=== PATIENT | female | born 1935 | race Caucasian/White ===

== ENCOUNTER → 2017-01-25 | Outpatient (CLI) | payer MEDICARE, MEDICAID ==
[~2017-01-25] MED LIST: ALPR0.254 PO; ATEN-60 PO; ENA2.5T PO; INSLANTI SC; INSUPOW XX; LACT10SO PO; LISI-646; MENTOIN9 EX; OMEP20CA5 PO; SIMV20TA90 OR; [UNRECOGNIZED DRUG - MIXTURE]; [UNRECOGNIZED DRUG - OTHER]
== END | disposition home or self-care (01) ==
LOC: Rad HDHVI 11:19
PROVIDERS: ATTEND Internal Medicine Cardiovascular Disease
DX: I73.9 Peripheral vascular disease, unspecified (principal); K55.9 Vascular disorder of intestine, unspecified; R06.00 Dyspnea, unspecified
CPT/HCPCS: 93306

== ENCOUNTER → 2017-05-04 | Outpatient (CLI) | payer MEDICARE, MEDICAID ==
[~2017-05-04] MED LIST changes: -LACT10SO PO; +LACT10SO3 PO; -OMEP20CA5 PO; +OMEP20CA74 PO
[2017-05-04 16:45] LABS: Urine Bilirubin Negative (Negative); Urine Blood Negative /uL (Negative); Urine Color Yellow (Yellow); Urine Glucose Normal (Normal); Urine Ketone Negative (Negative); Urine Nitrite Negative (Negative); Urine Urobilinogen Normal (Negative); Urine pH 6.5 (5.0-8.0)
[2017-05-04 17:02] LABS: Basophils # (auto) 0.1 uL; Basophils % (auto) 0.5 % (0.0-2.0); CONDITION Y; Eosinophils # (auto) 0.2 uL; Eosinophils % (auto) 1.8 % (0.0-7.0); Hematocrit 39.7 % (36.0-46.0); Hemoglobin 13.1 g/dL (12.2-16.2); Lymphocytes # (auto) 2.3 uL; Lymphocytes % (auto) 23.5 % (10.0-50.0); Mean Corpuscular Hemoglobin 27.9 pg (28.0-32.0); Mean Corpuscular Hgb Conc. 32.8 g/dL (32.0-36.0); Mean Corpuscular Volume 84.8 fL (80.0-100.0); Mean Platelet Volume 10.6 fL (7.4-10.4); Monocytes % (auto) 10.2 % (0.0-12.0); Neutrophils # (auto) 6.3 uL; Platelet Count (auto) 384 10^3/uL (140-450); Red Cell Distribution Width 13.6 % (11.6-16.0); White Blood Cell 9.8 10^3/uL (4.4-10.8)
[2017-05-04 17:05] LABS: BUN/Creatinine Ratio 16.3; Calcium 8.8 mg/dL (8.5-10.1); Potassium 3.9 mmol/L (3.5-5.1)
== END | disposition home or self-care (01) ==
LOC: Rad HDHVI 14:06
PROVIDERS: ATTEND Internal Medicine Cardiovascular Disease
DX: I08.3 Combined rheumatic disorders of mitral, aortic and tricuspid valves (principal); I10 Essential (primary) hypertension; E11.9 Type 2 diabetes mellitus without complications; E03.9 Hypothyroidism, unspecified; D64.9 Anemia, unspecified; N39.0 Urinary tract infection, site not specified; R06.00 Dyspnea, unspecified
CPT/HCPCS: 36415; 80048; 81003; 83036; 84443; 85025; 87086; 93306

== ENCOUNTER → 2017-09-15 | Outpatient (CLI) | payer MEDICARE, MEDICAID ==
[2017-09-15 16:23] LABS: Albumin 3.3 g/dL (3.4-5.0); Total Protein 7.9 g/dL (6.4-8.2)
[2017-09-15 16:44] LABS: Basophils # (auto) 0.1 uL; Basophils % (auto) 0.6 % (0.0-2.0); Eosinophils # (auto) 0.2 uL; Eosinophils % (auto) 1.9 % (0.0-7.0); Hematocrit 41.7 % (36.0-46.0); Hemoglobin 13.5 g/dL (12.2-16.2); Lymphocytes # (auto) 2.1 uL; Mean Corpuscular Hemoglobin 28.7 pg (28.0-32.0); Mean Corpuscular Hgb Conc. 32.5 g/dL (32.0-36.0); Mean Corpuscular Volume 88.3 fL (80.0-100.0); Mean Platelet Volume 9.7 fL (6.9-10.8); Monocytes % (auto) 11.1 % (0.0-12.0); Neutrophils # (auto) 5.9 uL; Neutrophils % (auto) 63.4 % (37.0-80.0); Nucleated Red Blood Cells % 0.1 %; Platelet Count (auto) 281 10^3/uL (140-450); Red Cell Distribution Width 13.4 % (11.8-14.3); White Blood Cell 9.3 10^3/uL (4.4-10.8)
[2017-09-15 16:53] LABS: Potassium 3.7 mmol/L (3.5-5.1)
[2017-09-15 16:54] LABS: BUN/Creatinine Ratio 18.4; Bilirubin, Direct 0.1 mg/dL (0-0.2); Bilirubin, Total 0.3 mg/dL (0.2-1.0)
== END | disposition home or self-care (01) ==
LOC: Rad HDHVI 12:58
PROVIDERS: ATTEND Internal Medicine Cardiovascular Disease
DX: I25.5 Ischemic cardiomyopathy (principal); E11.9 Type 2 diabetes mellitus without complications; I10 Essential (primary) hypertension; D64.9 Anemia, unspecified; E78.00 Pure hypercholesterolemia, unspecified; E03.9 Hypothyroidism, unspecified; E55.9 Vitamin D deficiency, unspecified; K74.1 Hepatic sclerosis; N39.0 Urinary tract infection, site not specified
CPT/HCPCS: 36415; 80048; 80061; 80076; 82306; 83036; 84443; 85025; 85652; 86141; 93306

== ENCOUNTER → 2018-06-06 | Outpatient (CLI) | payer MEDICARE, MEDICAID ==
[~2018-06-06] MED LIST changes: +CAR3125T PO; +FURO40TA4 PO; +GAB100C PO; +HYDR-4072 PO; +INSRTEST SC; +MAGN400T5 PO; +RIVA20TA PO; +SOTA80TA62 PO
== END | disposition home or self-care (01) ==
LOC: Rad HDHVI 14:56
PROVIDERS: ATTEND Internal Medicine Cardiovascular Disease
DX: I08.1 Rheumatic disorders of both mitral and tricuspid valves (principal); I73.9 Peripheral vascular disease, unspecified; E11.22 Type 2 diabetes mellitus with diabetic chronic kidney disease; I12.9 Hypertensive chronic kidney disease with stage 1 through stage 4 chronic kidney disease, or unspecified chronic kidney disease; E78.00 Pure hypercholesterolemia, unspecified; N18.9 Chronic kidney disease, unspecified; E03.9 Hypothyroidism, unspecified
CPT/HCPCS: 93306

== ENCOUNTER → 2018-06-21 | Outpatient (CLI) | payer MEDICARE, MEDICAID ==
[2018-06-21 12:10] VITALS: BP 99/46
[2018-06-21 16:33] LABS: Basophils # (auto) 0.1 uL; Basophils % (auto) 0.4 % (0.0-2.0); Eosinophils # (auto) 0.1 uL; Eosinophils % (auto) 0.7 % (0.0-7.0); Hematocrit 38.7 % (36.0-46.0); Hemoglobin 12.6 g/dL (12.2-16.2); Lymphocytes # (auto) 1.8 uL; Mean Corpuscular Hemoglobin 27.9 pg (28.0-32.0); Mean Corpuscular Hgb Conc. 32.5 g/dL (32.0-36.0); Mean Corpuscular Volume 85.8 fL (80.0-100.0); Monocytes # (auto) 1.2 uL; Monocytes % (auto) 8.5 % (0.0-12.0); Neutrophils # (auto) 10.9 uL; Neutrophils % (auto) 77.4 % (37.0-80.0); Nucleated Red Blood Cells % 0.1 %; Platelet Count (auto) 459 10^3/uL (140-450); Red Blood Cells 4.51 10^6/uL (4.0-5.20); Red Cell Distribution Width 13.7 % (11.8-14.3)
[2018-06-21 16:46] LABS: BUN/Creatinine Ratio 11.1; Calcium 8.9 mg/dL (8.5-10.1); Potassium 3.9 mmol/L (3.5-5.1)
[2018-06-21 17:29] VITALS: BP 89/50
[2018-06-21 17:49] LABS: INR 0.96 (0.9-1.15); Partial Thromboplastin Time 30.8 sec (23.78-33.04); Prothrombin Time 10.3 sec (9.27-12.13)
== END | disposition home or self-care (01) ==
LOC: Rad HDHVI 11:02
PROVIDERS: ATTEND Internal Medicine Cardiovascular Disease
DX: Z01.818 Encounter for other preprocedural examination (principal); I70.0 Atherosclerosis of aorta; D64.9 Anemia, unspecified; R79.1 Abnormal coagulation profile; J98.11 Atelectasis; I11.9 Hypertensive heart disease without heart failure; E11.9 Type 2 diabetes mellitus without complications; E03.9 Hypothyroidism, unspecified; I73.9 Peripheral vascular disease, unspecified; Z79.899 Other long term (current) drug therapy
CPT/HCPCS: 36415; 71046; 80048; 85025; 85610; 85730; 93005; G0463

== ENCOUNTER 2018-06-23 06:58 | Inpatient (IN) | payer MEDICARE, MEDICAID ==
[~2018-06-23] VITALS: Ht 167.6 cm; Wt 72.4 kg
[~2018-06-23 06:58] MED LIST changes: -ATEN-60 PO; -ENA2.5T PO; -INSUPOW XX; -LACT10SO3 PO; -LISI-646; -MENTOIN9 EX; -OMEP20CA74 PO; -[UNRECOGNIZED DRUG - MIXTURE]; -[UNRECOGNIZED DRUG - OTHER]
[2018-06-23] MEDS ORDERED: LIDOCAINE 2% (LOCAL ANESTH.) PF 5ml SDV ONE (07:58)
[2018-06-23] MEDS ORDERED: IOHEXOL 350 MG/ML 100ML IJ ONE (07:58)
[2018-06-23] MEDS ORDERED: IODIXANOL 320MG/ML 100ML BTL IV ONE ×2 (08:02→09:05)
[2018-06-23] MEDS ORDERED: MIDAZOLAM HCL 1MG/1ML-2 ML VIAL ONE (08:27)
[2018-06-23] MEDS ORDERED: ANGIOMAX 250 MG VIAL IV ONE (08:27)
[2018-06-23] MEDS ORDERED: SODIUM CHL 0.9% 50 ML ONE (08:27)
[2018-06-23] MEDS ORDERED: fentaNYL CITRATE 100 MCG/2 ML VL ONE (08:27)
[2018-06-23] MEDS ORDERED: RIVAROXABAN 10 MG TAB PO SCH (10:00)
[2018-06-23] MEDS ORDERED: DEXTROSE (50%) 50ML SYRG IV PRN (10:15)
[2018-06-23] MEDS ORDERED: PNEUMOCOCCAL VACC POLYS 25 MCG/0.5 ML VIAL IM ONE (12:00)
[2018-06-23] MEDS: FUROSEMIDE 40 MG TAB PO SCH ×2 (12:39→22:00)
[2018-06-23] MEDS: MAGNESIUM OXIDE 400 MG TAB PO SCH (12:39)
[2018-06-23] MEDS: InsuLIN REG 1unit/0.01ml Soln (100units/ml) SC SCH ×3 (12:40→22:12)
[2018-06-23] MEDS: ALPRAZolam 0.25 MG TAB PO SCH ×2 (12:40→22:02)
[2018-06-23] MEDS: ACCU-CHEK COMFORT CURVE STRIP VI SCH ×3 (12:41→22:12)
[2018-06-23] MEDS: HYDROcodone-ACET 10/325MG TAB PO SCH ×3 (12:41→22:12)
[2018-06-23 13:00] VITALS: BP 124/78
[2018-06-23 17:00] VITALS: BP 124/72
[2018-06-23] MEDS: RIVAROXABAN 20 MG TAB PO SCH (17:52)
[2018-06-23 21:30] VITALS: BP 110/63
[2018-06-23] MEDS: CARVEDILOL 3.125 MG TAB PO SCH (22:02)
[2018-06-23] MEDS: GABAPENTIN 100 MG CAP PO SCH (22:03)
[2018-06-23] MEDS: SOTALOL HCL 80 MG TAB PO SCH (22:04)
[2018-06-23] MEDS: INSULIN LANTUS (GLARGINE) 1 /0.01ml (100units/ml) SC SCH (22:12)
[2018-06-24 05:00] VITALS: BP 105/60
[2018-06-24] MEDS: ACCU-CHEK COMFORT CURVE STRIP VI SCH ×4 (06:38→22:41)
[2018-06-24] MEDS: InsuLIN REG 1unit/0.01ml Soln (100units/ml) SC SCH ×4 (06:38→22:41)
[2018-06-24] MEDS: HYDROcodone-ACET 10/325MG TAB PO SCH ×3 (06:38→18:37)
[2018-06-24 09:00] VITALS: BP 100/60
[2018-06-24] MEDS: FUROSEMIDE 40 MG TAB PO SCH ×2 (10:00→22:00)
[2018-06-24] MEDS: CARVEDILOL 3.125 MG TAB PO SCH ×2 (10:00→22:27)
[2018-06-24] MEDS: SOTALOL HCL 80 MG TAB PO SCH ×2 (10:00→22:26)
[2018-06-24] MEDS ORDERED: POTASSIUM CHL 20 Meq TABLET PO ONE (10:45)
[2018-06-24] MEDS ORDERED: FUROSEMIDE 40 MG/4 ML VIAL IV ONE (10:45)
[2018-06-24 13:00] VITALS: BP 121/64
[2018-06-24] MEDS: MAGNESIUM OXIDE 400 MG TAB PO SCH (15:10)
[2018-06-24] MEDS: GABAPENTIN 100 MG CAP PO SCH ×2 (15:11→22:25)
[2018-06-24] MEDS: ALPRAZolam 0.25 MG TAB PO SCH ×2 (15:11→22:26)
[2018-06-24 17:00] VITALS: BP 116/63
[2018-06-24] MEDS: RIVAROXABAN 20 MG TAB PO SCH (18:37)
[2018-06-24 21:30] VITALS: BP 114/57
[2018-06-24] MEDS: INSULIN LANTUS (GLARGINE) 1 /0.01ml (100units/ml) SC SCH (22:42)
[2018-06-25 05:00] VITALS: BP 105/47
[2018-06-25] MEDS: HYDROcodone-ACET 10/325MG TAB PO SCH ×2 (06:00→10:24)
[2018-06-25] MEDS: InsuLIN REG 1unit/0.01ml Soln (100units/ml) SC SCH (06:38)
[2018-06-25] MEDS: ACCU-CHEK COMFORT CURVE STRIP VI SCH (06:38)
[2018-06-25 08:57] VITALS: BP 103/56
[2018-06-25 09:32] VITALS: BP 103/56
[2018-06-25] MEDS: GABAPENTIN 100 MG CAP PO SCH (10:24)
[2018-06-25] MEDS: ALPRAZolam 0.25 MG TAB PO SCH (10:25)
[2018-06-25] MEDS: CARVEDILOL 3.125 MG TAB PO SCH (10:25)
[2018-06-25] MEDS: MAGNESIUM OXIDE 400 MG TAB PO SCH (10:25)
== END 2018-06-25 10:45 | disposition home health service (06) | DRG 271 ==
LOC: CATH 06:58 → TELE-WESTW 06:59 → WEST WING 21:00
PROVIDERS: ADMIT Internal Medicine Cardiovascular Disease; ATTEND Internal Medicine Cardiovascular Disease
PROC: B41G1ZZ Fluoroscopy of Left Lower Extremity Arteries using Low Osmolar Contrast (ICD-10-PCS; principal; 2018-06-23)
PROC: 04CP3ZZ Extirpation of Matter from Right Anterior Tibial Artery, Percutaneous Approach (ICD-10-PCS; 2018-06-23)
PROC: 047M341 Dilation of Right Popliteal Artery with Drug-eluting Intraluminal Device, using Drug-Coated Balloon, Percutaneous Approach (ICD-10-PCS; 2018-06-23)
PROC: 047T3Z1 Dilation of Right Peroneal Artery using Drug-Coated Balloon, Percutaneous Approach (ICD-10-PCS; 2018-06-23)
PROC: 04CR3ZZ Extirpation of Matter from Right Posterior Tibial Artery, Percutaneous Approach (ICD-10-PCS; 2018-06-23)
PROC: 04CT3ZZ Extirpation of Matter from Right Peroneal Artery, Percutaneous Approach (ICD-10-PCS; 2018-06-23)
PROC: B41F1ZZ Fluoroscopy of Right Lower Extremity Arteries using Low Osmolar Contrast (ICD-10-PCS; 2018-06-23)
DX: I70.201 Unspecified atherosclerosis of native arteries of extremities, right leg (principal); L97.919 Non-pressure chronic ulcer of unspecified part of right lower leg with unspecified severity; I74.3 Embolism and thrombosis of arteries of the lower extremities; E11.51 Type 2 diabetes mellitus with diabetic peripheral angiopathy without gangrene; E11.40 Type 2 diabetes mellitus with diabetic neuropathy, unspecified; E11.21 Type 2 diabetes mellitus with diabetic nephropathy; E11.622 Type 2 diabetes mellitus with other skin ulcer; I48.0 Paroxysmal atrial fibrillation; Z79.01 Long term (current) use of anticoagulants; I25.10 Atherosclerotic heart disease of native coronary artery without angina pectoris
CPT/HCPCS: 36415; 37229; 71046; 80048; 82962; 85025; 85610; 85730; 93005; 99152; A6257; G0463; J1815; J2001; J2250; Q9967

== ENCOUNTER 2018-06-29 13:14 | Inpatient (IN) | payer MEDICARE, MEDICAID ==
[~2018-06-29] VITALS: Ht 167.6 cm; Wt 74.0 kg
[2018-06-29 14:24] LABS: Basophils # (auto) 0.1 uL; Basophils % (auto) 0.7 % (0.0-2.0); Eosinophils # (auto) 0.3 uL; Eosinophils % (auto) 3.5 % (0.0-7.0); Hematocrit 34.8 % (36.0-46.0); Hemoglobin 11.4 g/dL (12.2-16.2); Lymphocytes # (auto) 1.4 uL; Lymphocytes % (auto) 14.6 % (10.0-50.0); Mean Corpuscular Hemoglobin 27.6 pg (28.0-32.0); Mean Corpuscular Hgb Conc. 32.7 g/dL (32.0-36.0); Mean Corpuscular Volume 84.4 fL (80.0-100.0); Monocytes # (auto) 1.4 uL; Monocytes % (auto) 13.9 % (0.0-12.0); Neutrophils # (auto) 6.5 uL; Neutrophils % (auto) 67.3 % (37.0-80.0); Platelet Count (auto) 400 10^3/uL (140-450); Red Blood Cells 4.12 10^6/uL (4.0-5.20); Red Cell Distribution Width 13.4 % (11.8-14.3); White Blood Cell 9.7 10^3/uL (4.4-10.8)
[2018-06-29 14:38] LABS: INR 1.53 (0.9-1.15); Partial Thromboplastin Time 51.4 sec (23.78-33.04)
[2018-06-29 14:47] LABS: Alanine Aminotransferase 15 U/L (13-56); Albumin 2.7 g/dL (3.4-5.0); Alkaline Phosphatase 145 U/L (45-117); Anion Gap 8 (5-15); Aspartate Aminotransferase 14 U/L (15-37); BUN/Creatinine Ratio 18.2; Bilirubin, Total 0.4 mg/dL (0.2-1.0); Blood Urea Nitrogen 24 mg/dL (7-18); Calcium 8.4 mg/dL (8.5-10.1); Carbon Dioxide 26 mmol/L (21-32); Chloride 102 mmol/L (98-107); GFR African American 50 mL/min; GFR Non-African American 41 mL/min; Glucose 202 mg/dL (74-106); Potassium 4.1 mmol/L (3.5-5.1); Sodium 136 mmol/L (136-145); Total Protein 7.6 g/dL (6.4-8.2)
[2018-06-29] MEDS ORDERED: SODIUM CHLORIDE 0.9% 1,000 ML IV SCH ×2 (20:18→22:45)
[2018-06-29] MEDS ORDERED: ONDANSETRON HCL 4 MG/2 ML VIAL IV PRN (20:30)
[2018-06-29] MEDS ORDERED: TEMAZEPAM 15 MG CAP PO PRN (20:30)
[2018-06-29] MEDS ORDERED: DEXTROSE (50%) 50ML SYRG IV PRN (20:30)
[2018-06-29] MEDS ORDERED: MORPHINE SULF INJ 2 MG/ML SYRINGE 1ML IV PRN (20:30)
[2018-06-29] MEDS ORDERED: ACETAMINOPHEN 325 MG TAB PO PRN (20:30)
[2018-06-29] MEDS ORDERED: RIVAROXABAN 20 MG TAB PO ONE (20:45)
[2018-06-29] MEDS: PANTOPRAZOLE 40 MG TAB PO SCH (20:54)
[2018-06-29] MEDS: HYDROcodone-ACET 5/325MG TAB PO PRN (21:13)
[2018-06-29 22:00] VITALS: BP 106/48
[2018-06-29] MEDS ORDERED: SOTALOL HCL 80 MG TAB PO SCH (22:00)
[2018-06-29] MEDS: CLINDAMYCIN 600MG IV 50 ML IV SCH (22:08)
[2018-06-29] MEDS: ATORVASTATIN 20 MG TAB PO SCH (22:09)
[2018-06-29] MEDS: CARVEDILOL 3.125 MG TAB PO SCH (22:09)
[2018-06-29] MEDS: GABAPENTIN 100 MG CAP PO SCH (22:09)
[2018-06-29 22:46] VITALS: BP 106/48
[2018-06-29 22:50] VITALS: BP 106/48
[2018-06-30] MEDS: InsuLIN REG 1unit/0.01ml Soln (100units/ml) SC SCH ×5 (00:12→23:37)
[2018-06-30] MEDS: ACCU-CHEK COMFORT CURVE STRIP VI SCH ×5 (00:13→23:28)
[2018-06-30 05:00] VITALS: BP 101/56
[2018-06-30] MEDS: CLINDAMYCIN 600MG IV 50 ML IV SCH ×3 (05:39→23:27)
[2018-06-30] MEDS: FUROSEMIDE 40 MG TAB PO SCH ×2 (06:00→18:25)
[2018-06-30 06:31] LABS: Albumin 2.2 g/dL (3.4-5.0); BUN/Creatinine Ratio 22.4; Calcium 7.7 mg/dL (8.5-10.1); Potassium 3.9 mmol/L (3.5-5.1)
[2018-06-30 06:34] LABS: Bilirubin, Total 0.3 mg/dL (0.2-1.0); Total Protein 6.2 g/dL (6.4-8.2)
[2018-06-30 06:58] LABS: Hematocrit 30.9 % (36.0-46.0); Hemoglobin 10.2 g/dL (12.2-16.2); Mean Corpuscular Hemoglobin 27.8 pg (28.0-32.0); Mean Corpuscular Hgb Conc. 33.1 g/dL (32.0-36.0); Mean Corpuscular Volume 84.2 fL (80.0-100.0); Platelet Count (auto) 301 10^3/uL (140-450); Red Blood Cells 3.67 10^6/uL (4.0-5.20); Red Cell Distribution Width 13.6 % (11.8-14.3); White Blood Cell 6.4 10^3/uL (4.4-10.8)
[2018-06-30 07:02] LABS: Basophils % (manual) 0 (0.0-2.0); Blast Cells 0; Metamyelocytes % 0; Myelocytes % 0; Promyelocytes % 0; Reactive Lymphocytes 0
[2018-06-30 07:12] LABS: Urine Bacteria MANY /hpf (None Seen); Urine Blood TRACE /uL (Negative); Urine Mucus FEW (None Seen); Urine Specific Gravity 1.014 (1.001-1.035); Urine WBC 57 /hpf (0 - 5); Urine WBC Clumps PRESENT /hpf (None Seen)
[2018-06-30 08:45] VITALS: BP 101/63
[2018-06-30] MEDS: CARVEDILOL 3.125 MG TAB PO SCH ×2 (10:00→22:06)
[2018-06-30] MEDS: GABAPENTIN 100 MG CAP PO SCH ×2 (10:00→22:06)
[2018-06-30] MEDS: PANTOPRAZOLE 40 MG TAB PO SCH (10:00)
[2018-06-30] MEDS ORDERED: IODIXANOL 320MG/ML 100ML BTL IV ONE ×3 (10:11→11:40)
[2018-06-30] MEDS ORDERED: LIDOCAINE 2% (LOCAL ANESTH.) PF 5ml SDV ONE (10:11)
[2018-06-30] MEDS ORDERED: ANGIOMAX 250 MG VIAL IV ONE ×2 (10:46→12:08)
[2018-06-30] MEDS ORDERED: fentaNYL CITRATE 100 MCG/2 ML VL ONE (10:46)
[2018-06-30] MEDS ORDERED: MIDAZOLAM HCL 1MG/1ML-2 ML VIAL ONE (10:47)
[2018-06-30] MEDS ORDERED: SODIUM CHL 0.9% 0 ML ONE (10:47)
[2018-06-30 11:25] LABS: Band Neutrophils % (manual) 1; Eosinophils % (manual) 6 (0-7); Lymphocytes % (manual) 29 (10.0-50.0); Monocytes % (manual) 18 (0-12)
[2018-06-30] MEDS ORDERED: SODIUM CHL 0.9% 50 ML ONE (12:08)
[2018-06-30 13:00] VITALS: BP 126/70
[2018-06-30] MEDS ORDERED: ALPRAZolam 0.25 MG TAB PO PRN (13:30)
[2018-06-30] MEDS ORDERED: cefTRIAXone 1GM/10ml IVPUSH 10 ML IV ONE (13:30)
[2018-06-30] MEDS: HYDROcodone-ACET 5/325MG TAB PO PRN ×2 (15:51→20:41)
[2018-06-30 17:00] VITALS: BP 114/56
[2018-06-30] MEDS ORDERED: RIVAROXABAN 20 MG TAB PO SCH (18:00)
[2018-06-30 22:00] VITALS: BP 114/61
[2018-06-30] MEDS: ATORVASTATIN 20 MG TAB PO SCH (22:00)
[2018-06-30] MEDS: SOTALOL HCL 80 MG TAB PO SCH (22:07)
[2018-07-01] MEDS: HYDROcodone-ACET 5/325MG TAB PO PRN ×2 (04:56→22:05)
[2018-07-01 05:00] VITALS: BP 101/56
[2018-07-01 05:00] LABS: Basophils # (auto) 0.1 uL; Basophils % (auto) 0.9 % (0.0-2.0); Eosinophils # (auto) 0.4 uL; Eosinophils % (auto) 5.8 % (0.0-7.0); Hematocrit 30.5 % (36.0-46.0); Hemoglobin 10.2 g/dL (12.2-16.2); Lymphocytes # (auto) 1.5 uL; Lymphocytes % (auto) 24.1 % (10.0-50.0); Mean Corpuscular Hemoglobin 28.4 pg (28.0-32.0); Mean Corpuscular Hgb Conc. 33.5 g/dL (32.0-36.0); Monocytes % (auto) 15.4 % (0.0-12.0); Neutrophils # (auto) 3.3 uL; Neutrophils % (auto) 53.8 % (37.0-80.0); Nucleated Red Blood Cells % 0.2 %; Platelet Count (auto) 322 10^3/uL (140-450); Red Blood Cells 3.59 10^6/uL (4.0-5.20); Red Cell Distribution Width 13.6 % (11.8-14.3); White Blood Cell 6.2 10^3/uL (4.4-10.8)
[2018-07-01 05:14] LABS: INR 1.08 (0.9-1.15); Prothrombin Time 11.5 sec (9.27-12.13)
[2018-07-01 05:17] LABS: BUN/Creatinine Ratio 21.8; Calcium 7.9 mg/dL (8.5-10.1); Potassium 4.4 mmol/L (3.5-5.1)
[2018-07-01] MEDS: FUROSEMIDE 40 MG TAB PO SCH ×2 (05:37→17:43)
[2018-07-01] MEDS: ACCU-CHEK COMFORT CURVE STRIP VI SCH ×3 (05:39→17:43)
[2018-07-01] MEDS: InsuLIN REG 1unit/0.01ml Soln (100units/ml) SC SCH ×3 (05:39→17:44)
[2018-07-01 08:04] VITALS: BP 100/54
[2018-07-01] MEDS: CLINDAMYCIN 600MG IV 50 ML IV SCH ×2 (08:09→15:37)
[2018-07-01] MEDS: cefTRIAXone 1GM/10ml IVPUSH 10 ML IV SCH (09:27)
[2018-07-01] MEDS: GABAPENTIN 100 MG CAP PO SCH ×2 (09:28→21:59)
[2018-07-01] MEDS: PANTOPRAZOLE 40 MG TAB PO SCH (09:28)
[2018-07-01] MEDS: CARVEDILOL 3.125 MG TAB PO SCH ×2 (11:27→22:04)
[2018-07-01] MEDS: SOTALOL HCL 80 MG TAB PO SCH ×2 (11:27→22:00)
[2018-07-01 12:03] VITALS: BP 136/80
[2018-07-01] MEDS: DOCUSATE SOD 100 MG CAP PO PRN (15:42)
[2018-07-01 16:38] VITALS: BP 118/68
[2018-07-01 22:00] VITALS: BP 119/54
[2018-07-01] MEDS: ATORVASTATIN 20 MG TAB PO SCH (22:04)
[2018-07-02] MEDS: CLINDAMYCIN 600MG IV 50 ML IV SCH ×3 (00:24→16:08)
[2018-07-02] MEDS: ACCU-CHEK COMFORT CURVE STRIP VI SCH ×4 (00:24→18:07)
[2018-07-02] MEDS: InsuLIN REG 1unit/0.01ml Soln (100units/ml) SC SCH ×4 (00:39→18:08)
[2018-07-02 04:56] VITALS: BP 114/76
[2018-07-02] MEDS: FUROSEMIDE 40 MG TAB PO SCH ×2 (05:35→18:07)
[2018-07-02] MEDS: HYDROcodone-ACET 5/325MG TAB PO PRN ×3 (05:36→20:35)
[2018-07-02] MEDS: DOCUSATE SOD 100 MG CAP PO PRN (06:56)
[2018-07-02 08:14] VITALS: BP 121/74
[2018-07-02] MEDS: cefTRIAXone 1GM/10ml IVPUSH 10 ML IV SCH (09:17)
[2018-07-02] MEDS: PANTOPRAZOLE 40 MG TAB PO SCH (09:21)
[2018-07-02] MEDS: CARVEDILOL 3.125 MG TAB PO SCH ×2 (09:22→22:28)
[2018-07-02] MEDS: GABAPENTIN 100 MG CAP PO SCH ×2 (09:22→22:28)
[2018-07-02 12:05] VITALS: BP 135/67
[2018-07-02] MEDS ORDERED: MILK OF MAGNESIA 30ML SUSP PO ONE (14:00)
[2018-07-02 17:20] VITALS: BP 97/44
[2018-07-02 21:27] VITALS: BP_SYST 113; BP_SYST 136; BP_DIAS 52; BP_DIAS 76
[2018-07-02] MEDS: SOTALOL HCL 80 MG TAB PO SCH (22:00)
[2018-07-02] MEDS: ATORVASTATIN 20 MG TAB PO SCH (22:28)
[2018-07-03] VITALS (7 sets, daily range): BP systolic 92–130; BP diastolic 53–70
[2018-07-03] MEDS: CLINDAMYCIN 600MG IV 50 ML IV SCH ×4 (00:12→23:03)
[2018-07-03] MEDS: ACCU-CHEK COMFORT CURVE STRIP VI SCH ×5 (00:12→23:23)
[2018-07-03] MEDS: InsuLIN REG 1unit/0.01ml Soln (100units/ml) SC SCH ×5 (00:25→23:23)
[2018-07-03] MEDS: FUROSEMIDE 40 MG TAB PO SCH (06:00)
[2018-07-03 07:29] LABS: Basophils # (auto) 0.1 uL; Basophils % (auto) 1.1 % (0.0-2.0); Eosinophils # (auto) 0.3 uL; Eosinophils % (auto) 5.6 % (0.0-7.0); Hematocrit 32.4 % (36.0-46.0); Hemoglobin 10.7 g/dL (12.2-16.2); Lymphocytes # (auto) 1.3 uL; Lymphocytes % (auto) 24.5 % (10.0-50.0); Mean Corpuscular Hemoglobin 27.8 pg (28.0-32.0); Mean Corpuscular Volume 84.4 fL (80.0-100.0); Monocytes # (auto) 0.8 uL; Monocytes % (auto) 15.5 % (0.0-12.0); Neutrophils # (auto) 2.8 uL; Neutrophils % (auto) 53.3 % (37.0-80.0); Nucleated Red Blood Cells % 0.2 %; Platelet Count (auto) 317 10^3/uL (140-450); Red Blood Cells 3.84 10^6/uL (4.0-5.20); Red Cell Distribution Width 13.8 % (11.8-14.3); White Blood Cell 5.3 10^3/uL (4.4-10.8)
[2018-07-03 07:42] LABS: INR 1.08 (0.9-1.15); Partial Thromboplastin Time 28.2 sec (23.78-33.04); Prothrombin Time 11.5 sec (9.27-12.13)
[2018-07-03 07:46] LABS: Albumin 2.4 g/dL (3.4-5.0); BUN/Creatinine Ratio 16.8; Bilirubin, Total 0.3 mg/dL (0.2-1.0); Calcium 8.3 mg/dL (8.5-10.1); Potassium 4.1 mmol/L (3.5-5.1); Total Protein 6.6 g/dL (6.4-8.2)
[2018-07-03] MEDS: cefTRIAXone 1GM/10ml IVPUSH 10 ML IV SCH (09:54)
[2018-07-03] MEDS: PANTOPRAZOLE 40 MG TAB PO SCH ×2 (10:00→12:21)
[2018-07-03] MEDS: GABAPENTIN 100 MG CAP PO SCH ×3 (10:00→21:20)
[2018-07-03] MEDS: SOTALOL HCL 80 MG TAB PO SCH ×2 (10:00→21:19)
[2018-07-03] MEDS ORDERED: LACTULOSE 20Gm/30ML SOLN PO ONE (12:15)
[2018-07-03] MEDS: DOCUSATE SOD 100 MG CAP PO PRN ×2 (12:21→21:18)
[2018-07-03] MEDS: HYDROcodone-ACET 5/325MG TAB PO PRN ×2 (12:21→17:46)
[2018-07-03] MEDS ORDERED: MILK OF MAGNESIA 30ML SUSP PO ONE (12:30)
[2018-07-03] MEDS: HYDROmorphone HCL 2 MG/ML VL IV PRN (20:02)
[2018-07-03] MEDS: ATORVASTATIN 20 MG TAB PO SCH (21:19)
[2018-07-04 05:00] VITALS: BP 121/69
[2018-07-04] MEDS: InsuLIN REG 1unit/0.01ml Soln (100units/ml) SC SCH ×4 (05:12→17:46)
[2018-07-04] MEDS: ACCU-CHEK COMFORT CURVE STRIP VI SCH ×3 (05:13→17:46)
[2018-07-04 06:43] LABS: Basophils # (auto) 0 uL; Basophils % (auto) 0.7 % (0.0-2.0); Eosinophils # (auto) 0.3 uL; Eosinophils % (auto) 4.1 % (0.0-7.0); Hematocrit 31.2 % (36.0-46.0); Hemoglobin 10.1 g/dL (12.2-16.2); Lymphocytes # (auto) 1.1 uL; Lymphocytes % (auto) 16.1 % (10.0-50.0); Mean Corpuscular Hemoglobin 27.6 pg (28.0-32.0); Mean Corpuscular Hgb Conc. 32.5 g/dL (32.0-36.0); Mean Corpuscular Volume 84.9 fL (80.0-100.0); Neutrophils # (auto) 4.5 uL; Neutrophils % (auto) 65.1 % (37.0-80.0); Nucleated Red Blood Cells % 0.1 %; Platelet Count (auto) 331 10^3/uL (140-450); Red Blood Cells 3.67 10^6/uL (4.0-5.20); Red Cell Distribution Width 13.7 % (11.8-14.3); White Blood Cell 6.9 10^3/uL (4.4-10.8)
[2018-07-04 06:52] LABS: BUN/Creatinine Ratio 17.1; Calcium 7.9 mg/dL (8.5-10.1); Potassium 4.2 mmol/L (3.5-5.1)
[2018-07-04] MEDS ORDERED: ceFAZolin 1GM/50ML 50 ML IV ONE (06:56)
[2018-07-04] MEDS ORDERED: ceFAZolin 1GM VL ONE (07:03)
[2018-07-04] MEDS ORDERED: SUCCINYLCHOLINE CHLORIDE 20 MG/ML 10ML VIAL IV ONE (07:13)
[2018-07-04] MEDS ORDERED: LIDOCAINE 1% (LOCAL ANESTH.) PF 5ml SDV ONE (07:13)
[2018-07-04] MEDS ORDERED: MIDAZOLAM HCL 1MG/1ML-2 ML VIAL ONE (07:14)
[2018-07-04] MEDS ORDERED: ETOMIDATE (2MG/ML) 20ML VIAL IV ONE (07:15)
[2018-07-04] MEDS ORDERED: ROCURONIUM 10MG/ML 10ML VIAL IV ONE (07:15)
[2018-07-04] MEDS ORDERED: fentaNYL CITRATE 100 MCG/2 ML VL ONE (07:26)
[2018-07-04] MEDS ORDERED: NEOMYCIN-BACITRACIN-POLYM 15GM TOP OINT TOP ONE (07:41)
[2018-07-04] MEDS ORDERED: hydrALAZINE HCL 20 MG/ML VL IV PRN (07:45)
[2018-07-04] MEDS ORDERED: ONDANSETRON HCL 4 MG/2 ML VIAL IV ONE (07:45)
[2018-07-04] MEDS ORDERED: NALOXONE HCL 0.4 MG/ML VIAL IV PRN (07:45)
[2018-07-04] MEDS ORDERED: ACCU-CHEK COMFORT CURVE STRIP VI ONE (07:45)
[2018-07-04] MEDS ORDERED: GLYCOPYRROLATE 0.2 MG/ML 1ML VIAL ONE (07:56)
[2018-07-04] MEDS ORDERED: NEOSTIGMINE 1 MG/ML INJ (10mg/10ML VIAL) ONE (07:56)
[2018-07-04] MEDS: CLINDAMYCIN 600MG IV 50 ML IV SCH ×2 (08:00→16:08)
[2018-07-04] MEDS: MORPHINE SULFATE 4 MG/ML SYR/VIAL IV PRN ×2 (08:12→08:28)
[2018-07-04] MEDS: GABAPENTIN 100 MG CAP PO SCH ×2 (09:50→22:01)
[2018-07-04] MEDS: SOTALOL HCL 80 MG TAB PO SCH ×2 (09:51→22:03)
[2018-07-04] MEDS: cefTRIAXone 1GM/10ml IVPUSH 10 ML IV SCH (09:52)
[2018-07-04] MEDS: FUROSEMIDE 40 MG TAB PO SCH (09:52)
[2018-07-04] MEDS: HYDROmorphone HCL 2 MG/ML VL IV PRN ×3 (09:53→21:10)
[2018-07-04] MEDS ORDERED: MILK OF MAGNESIA 30ML SUSP PO SCH (10:00)
[2018-07-04] MEDS: HYDROcodone-ACET 5/325MG TAB PO PRN ×2 (11:20→16:09)
[2018-07-04] MEDS: PANTOPRAZOLE 40 MG TAB PO SCH (12:00)
[2018-07-04 13:00] VITALS: BP 123/73
[2018-07-04 17:00] VITALS: BP 136/92
[2018-07-04 21:54] VITALS: BP 126/70
[2018-07-04] MEDS: ATORVASTATIN 20 MG TAB PO SCH (22:02)
[2018-07-05] MEDS: CLINDAMYCIN 600MG IV 50 ML IV SCH ×2 (00:04→09:26)
[2018-07-05] MEDS: ACCU-CHEK COMFORT CURVE STRIP VI SCH ×5 (00:04→23:43)
[2018-07-05] MEDS: HYDROcodone-ACET 10/325MG TAB PO PRN ×3 (00:08→18:25)
[2018-07-05 05:00] VITALS: BP 120/57
[2018-07-05 05:44] LABS: Basophils # (auto) 0.1 uL; Basophils % (auto) 0.8 % (0.0-2.0); Eosinophils # (auto) 0.2 uL; Hematocrit 32.4 % (36.0-46.0); Hemoglobin 10.4 g/dL (12.2-16.2); Lymphocytes # (auto) 1.2 uL; Lymphocytes % (auto) 11.3 % (10.0-50.0); Mean Corpuscular Hemoglobin 28.2 pg (28.0-32.0); Mean Corpuscular Hgb Conc. 32.1 g/dL (32.0-36.0); Mean Corpuscular Volume 87.9 fL (80.0-100.0); Monocytes # (auto) 1.4 uL; Monocytes % (auto) 12.9 % (0.0-12.0); Nucleated Red Blood Cells % 0.1 %; Platelet Count (auto) 290 10^3/uL (140-450); Red Blood Cells 3.69 10^6/uL (4.0-5.20); Red Cell Distribution Width 14.5 % (11.8-14.3); White Blood Cell 10.9 10^3/uL (4.4-10.8)
[2018-07-05] MEDS: InsuLIN REG 1unit/0.01ml Soln (100units/ml) SC SCH ×5 (05:49→23:44)
[2018-07-05 06:19] LABS: BUN/Creatinine Ratio 16.1; Calcium 6.5 mg/dL (8.5-10.1)
[2018-07-05 08:20] VITALS: BP 110/48
[2018-07-05 09:00] VITALS: BP 110/48
[2018-07-05] MEDS ORDERED: ADENOSINE 64 MG in GIVE UN-DILUTED 0 ML IV ONE (09:00)
[2018-07-05] MEDS: cefTRIAXone 1GM/10ml IVPUSH 10 ML IV SCH (09:26)
[2018-07-05] MEDS: SOTALOL HCL 80 MG TAB PO SCH ×2 (09:27→22:00)
[2018-07-05] MEDS: PANTOPRAZOLE 40 MG TAB PO SCH (09:27)
[2018-07-05] MEDS: GABAPENTIN 100 MG CAP PO SCH ×2 (09:28→22:59)
[2018-07-05] MEDS: FUROSEMIDE 40 MG TAB PO SCH (09:28)
[2018-07-05 13:00] VITALS: BP 125/67
[2018-07-05] MEDS: CLINDAMYCIN HCL 150 MG CAP PO SCH ×2 (13:01→22:59)
[2018-07-05 17:00] VITALS: BP 111/56
[2018-07-05] MEDS ORDERED: VANCOMYCIN PER PHARMACY 0 MG IV SCH (19:00)
[2018-07-05 22:00] VITALS: BP 120/78
[2018-07-05] MEDS ORDERED: VANCOMYCIN 1GM/250ML 250 ML IV SCH (22:30)
[2018-07-05] MEDS: ATORVASTATIN 20 MG TAB PO SCH (22:56)
[2018-07-05] MEDS: ASCORBIC ACID 500 MG TAB PO SCH (23:00)
[2018-07-06] MEDS: PIPERACILLIN-TAZOB 3.375GM 100 ML IV SCH ×2 (01:48→06:46)
[2018-07-06 05:02] VITALS: BP 114/61
[2018-07-06] MEDS: CLINDAMYCIN HCL 150 MG CAP PO SCH (06:00)
[2018-07-06 06:23] LABS: Basophils # (auto) 0.1 uL; Basophils % (auto) 0.6 % (0.0-2.0); Eosinophils # (auto) 0.1 uL; Eosinophils % (auto) 1.1 % (0.0-7.0); Hemoglobin 10.2 g/dL (12.2-16.2); Lymphocytes # (auto) 1.2 uL; Lymphocytes % (auto) 9.7 % (10.0-50.0); Mean Corpuscular Hemoglobin 27.6 pg (28.0-32.0); Mean Corpuscular Hgb Conc. 32.9 g/dL (32.0-36.0); Mean Corpuscular Volume 83.9 fL (80.0-100.0); Monocytes # (auto) 1.7 uL; Monocytes % (auto) 14.4 % (0.0-12.0); Neutrophils # (auto) 8.9 uL; Neutrophils % (auto) 74.2 % (37.0-80.0); Platelet Count (auto) 287 10^3/uL (140-450); Red Blood Cells 3.69 10^6/uL (4.0-5.20); Red Cell Distribution Width 14.2 % (11.8-14.3)
[2018-07-06 06:43] LABS: Calcium 7.9 mg/dL (8.5-10.1); Potassium 3.9 mmol/L (3.5-5.1)
[2018-07-06] MEDS: ACCU-CHEK COMFORT CURVE STRIP VI SCH (06:47)
[2018-07-06] MEDS: InsuLIN REG 1unit/0.01ml Soln (100units/ml) SC SCH (06:48)
[2018-07-06 06:49] LABS: BUN/Creatinine Ratio 12.7
[2018-07-06 09:00] VITALS: BP 113/68
[2018-07-06] MEDS: GABAPENTIN 100 MG CAP PO SCH (09:59)
[2018-07-06] MEDS: PANTOPRAZOLE 40 MG TAB PO SCH (09:59)
[2018-07-06] MEDS: SOTALOL HCL 80 MG TAB PO SCH (09:59)
[2018-07-06] MEDS: ASCORBIC ACID 500 MG TAB PO SCH (09:59)
[2018-07-06] MEDS: HYDROcodone-ACET 10/325MG TAB PO PRN (10:00)
[2018-07-06] MEDS ORDERED: MULTIPLE VITAMIN TAB PO SCH (10:00)
[2018-07-06] MEDS: FUROSEMIDE 40 MG TAB PO SCH (10:00)
[2018-07-06 10:21] VITALS: BP 113/68
[2018-07-06 13:00] VITALS: BP 103/59
== END 2018-07-06 12:40 | disposition home health service (06) | DRG 239 ==
LOC: ER 13:14 → OVERFLOW 13:15 → CENTRAL 22:20
PROVIDERS: ADMIT Nurse Practitioner; ATTEND Internal Medicine
PROC: B41G1ZZ Fluoroscopy of Left Lower Extremity Arteries using Low Osmolar Contrast (ICD-10-PCS; principal; 2018-06-30)
PROC: B41F1ZZ Fluoroscopy of Right Lower Extremity Arteries using Low Osmolar Contrast (ICD-10-PCS; 2018-06-30)
PROC: 0Y6M0Z9 Detachment at Right Foot, Partial 1st Ray, Open Approach (ICD-10-PCS; 2018-07-04)
PROC: 0Y6M0ZB Detachment at Right Foot, Partial 2nd Ray, Open Approach (ICD-10-PCS; 2018-07-04)
PROC: 0Y6M0ZC Detachment at Right Foot, Partial 3rd Ray, Open Approach (ICD-10-PCS; 2018-07-04)
PROC: 0Y6M0ZD Detachment at Right Foot, Partial 4th Ray, Open Approach (ICD-10-PCS; 2018-07-04)
PROC: 0Y6M0ZF Detachment at Right Foot, Partial 5th Ray, Open Approach (ICD-10-PCS; 2018-07-04)
DX: E11.52 Type 2 diabetes mellitus with diabetic peripheral angiopathy with gangrene (principal); N17.0 Acute kidney failure with tubular necrosis; E44.0 Moderate protein-calorie malnutrition; I13.0 Hypertensive heart and chronic kidney disease with heart failure and stage 1 through stage 4 chronic kidney disease, or unspecified chronic kidney disease; I50.32 Chronic diastolic (congestive) heart failure; D68.69 Other thrombophilia; I48.91 Unspecified atrial fibrillation; N18.3 Chronic kidney disease, stage 3 (moderate); E11.22 Type 2 diabetes mellitus with diabetic chronic kidney disease; E78.5 Hyperlipidemia, unspecified; I25.10 Atherosclerotic heart disease of native coronary artery without angina pectoris; I70.0 Atherosclerosis of aorta; Z82.49 Family history of ischemic heart disease and other diseases of the circulatory system; Z95.5 Presence of coronary angioplasty implant and graft; Z90.49 Acquired absence of other specified parts of digestive tract; Z79.899 Other long term (current) drug therapy; Z79.4 Long term (current) use of insulin; Z68.26 Body mass index [BMI] 26.0-26.9, adult
CPT/HCPCS: 36415; 71045; 73700; 75716; 80048; 80053; 81001; 82962; 83880; 84484; 85007; 85025; 85027; 85610; 85730; 86850; 86900; 86901; 87081; 93005; 93926; 93971; 96360; 97163; 99152; A6257; J0153; J0330; J0690; J0696; J1815; J2001; J2250; J2405; J2543; J3490; Q9967

== ENCOUNTER 2018-07-14 19:31 | Inpatient (IN) | payer MEDICARE, MEDICAID ==
[~2018-07-14] VITALS: Ht 152.4 cm; Wt 74.1 kg
[2018-07-14 21:39] LABS: Basophils # (auto) 0.1 uL; Basophils % (auto) 1.2 % (0.0-2.0); Eosinophils # (auto) 0.3 uL; Hemoglobin 10.3 g/dL (12.2-16.2); Lymphocytes # (auto) 1.1 uL; Monocytes # (auto) 0.9 uL; Neutrophils # (auto) 4.2 uL; Red Cell Distribution Width 15.2 % (11.8-14.3)
[2018-07-14 21:41] LABS: Eosinophils % (auto) 4.9 % (0.0-7.0); Lymphocytes % (auto) 16.7 % (10.0-50.0); Mean Corpuscular Hemoglobin 27.5 pg (28.0-32.0); Mean Corpuscular Hgb Conc. 32.1 g/dL (32.0-36.0); Mean Corpuscular Volume 85.5 fL (80.0-100.0); Monocytes % (auto) 13.3 % (0.0-12.0); Neutrophils % (auto) 63.9 % (37.0-80.0); Nucleated Red Blood Cells % 0.1 %; Platelet Count (auto) 444 10^3/uL (140-450); Red Blood Cells 3.74 10^6/uL (4.0-5.20); White Blood Cell 6.5 10^3/uL (4.4-10.8)
[2018-07-14 21:54] LABS: Albumin 2.5 g/dL (3.4-5.0); BUN/Creatinine Ratio 19.5; Calcium 8.1 mg/dL (8.5-10.1); Potassium 4.8 mmol/L (3.5-5.1)
[2018-07-14 21:57] LABS: Bilirubin, Total 0.2 mg/dL (0.2-1.0)
[2018-07-15] MEDS ORDERED: ACETAMINOPHEN 500 MG TAB PO PRN (02:15)
[2018-07-15] MEDS ORDERED: ONDANSETRON HCL 4 MG/2 ML VIAL IV PRN (02:15)
[2018-07-15] MEDS ORDERED: HYDROcodone-ACET 10/325MG TAB PO ONE (02:15)
[2018-07-15] MEDS ORDERED: DEXTROSE (50%) 50ML SYRG IV PRN (02:15)
[2018-07-15] MEDS ORDERED: LORazepam 0.5 MG TAB PO PRN (02:15)
[2018-07-15 04:00] VITALS: BP 133/76
[2018-07-15 05:00] VITALS: BP 133/70
[2018-07-15] MEDS: HYDROcodone-ACET 5/325MG TAB PO PRN ×2 (06:48→14:20)
[2018-07-15] MEDS: PANTOPRAZOLE 40 MG TAB PO SCH (06:51)
[2018-07-15] MEDS: CLINDAMYCIN 600MG IV 50 ML IV SCH ×3 (06:51→23:13)
[2018-07-15] MEDS: InsuLIN REG 1unit/0.01ml Soln (100units/ml) SC SCH ×4 (06:52→22:00)
[2018-07-15] MEDS: ACCU-CHEK COMFORT CURVE STRIP VI SCH ×4 (06:52→22:00)
[2018-07-15 08:08] VITALS: BP 129/68
[2018-07-15 08:23] LABS: Basophils # (auto) 0.1 uL; Basophils % (auto) 1.3 % (0.0-2.0); Eosinophils # (auto) 0.3 uL; Eosinophils % (auto) 5.4 % (0.0-7.0); Hematocrit 29.4 % (36.0-46.0); Hemoglobin 9.6 g/dL (12.2-16.2); Lymphocytes # (auto) 1.4 uL; Lymphocytes % (auto) 23.1 % (10.0-50.0); Mean Corpuscular Hemoglobin 27.2 pg (28.0-32.0); Mean Corpuscular Hgb Conc. 32.5 g/dL (32.0-36.0); Mean Corpuscular Volume 83.7 fL (80.0-100.0); Neutrophils # (auto) 3.1 uL; Neutrophils % (auto) 53.2 % (37.0-80.0); Platelet Count (auto) 406 10^3/uL (140-450); Red Blood Cells 3.51 10^6/uL (4.0-5.20); Red Cell Distribution Width 15.2 % (11.8-14.3); White Blood Cell 5.9 10^3/uL (4.4-10.8)
[2018-07-15 08:29] LABS: BUN/Creatinine Ratio 20.6; Potassium 3.7 mmol/L (3.5-5.1)
[2018-07-15] MEDS: GABAPENTIN 100 MG CAP PO SCH ×2 (09:33→23:14)
[2018-07-15] MEDS: CARVEDILOL 3.125 MG TAB PO SCH ×2 (09:34→18:47)
[2018-07-15 11:54] VITALS: BP 113/55
[2018-07-15] MEDS: DOCUSATE SOD 100 MG CAP PO SCH ×2 (12:23→23:13)
[2018-07-15] MEDS: ENOXAPARIN SOD 40 MG/0.4 ML SYRINGE SC SCH (12:23)
[2018-07-15] MEDS ORDERED: cefTRIAXone 1GM/10ml IVPUSH 10 ML IV ONE (14:45)
[2018-07-15 16:50] VITALS: BP 115/56
[2018-07-15 19:10] LABS: Urine Bacteria FEW /hpf (None Seen); Urine Blood Negative /uL (Negative); Urine Specific Gravity 1.006 (1.001-1.035); Urine WBC 4 /hpf (0 - 5)
[2018-07-15 22:02] VITALS: BP 130/67
[2018-07-15] MEDS: ASCORBIC ACID 500 MG TAB PO SCH (23:14)
[2018-07-15] MEDS: ATORVASTATIN 20 MG TAB PO SCH (23:14)
[2018-07-15] MEDS: INSULIN LANTUS (GLARGINE) 1 /0.01ml (100units/ml) SC SCH (23:15)
[2018-07-16 05:09] VITALS: BP 119/75
[2018-07-16] MEDS: PANTOPRAZOLE 40 MG TAB PO SCH (06:00)
[2018-07-16 06:05] LABS: Basophils # (auto) 0.1 uL; Basophils % (auto) 1.1 % (0.0-2.0); Eosinophils # (auto) 0.3 uL; Eosinophils % (auto) 5.3 % (0.0-7.0); Hematocrit 28.2 % (36.0-46.0); Hemoglobin 9.5 g/dL (12.2-16.2); Lymphocytes % (auto) 17.3 % (10.0-50.0); Mean Corpuscular Hemoglobin 28.3 pg (28.0-32.0); Mean Corpuscular Hgb Conc. 33.7 g/dL (32.0-36.0); Mean Corpuscular Volume 84.1 fL (80.0-100.0); Monocytes # (auto) 0.9 uL; Monocytes % (auto) 15.6 % (0.0-12.0); Neutrophils # (auto) 3.7 uL; Neutrophils % (auto) 60.7 % (37.0-80.0); Platelet Count (auto) 383 10^3/uL (140-450); Red Blood Cells 3.35 10^6/uL (4.0-5.20); Red Cell Distribution Width 15.3 % (11.8-14.3); White Blood Cell 6.1 10^3/uL (4.4-10.8)
[2018-07-16 06:16] LABS: BUN/Creatinine Ratio 21.3; Calcium 7.8 mg/dL (8.5-10.1); Potassium 4.2 mmol/L (3.5-5.1)
[2018-07-16] MEDS: ACCU-CHEK COMFORT CURVE STRIP VI SCH ×4 (06:24→21:51)
[2018-07-16] MEDS: InsuLIN REG 1unit/0.01ml Soln (100units/ml) SC SCH ×5 (06:24→21:58)
[2018-07-16] MEDS: CLINDAMYCIN 600MG IV 50 ML IV SCH ×2 (06:24→13:59)
[2018-07-16] MEDS: cefTRIAXone 1GM/10ml IVPUSH 10 ML IV SCH (08:40)
[2018-07-16] MEDS: CARVEDILOL 3.125 MG TAB PO SCH ×2 (08:40→17:28)
[2018-07-16] MEDS: HYDROcodone-ACET 5/325MG TAB PO PRN ×2 (08:41→23:23)
[2018-07-16 09:00] VITALS: BP 120/61
[2018-07-16] MEDS: DOCUSATE SOD 100 MG CAP PO SCH ×2 (09:45→21:50)
[2018-07-16] MEDS: GABAPENTIN 100 MG CAP PO SCH ×2 (09:45→21:50)
[2018-07-16] MEDS: ASCORBIC ACID 500 MG TAB PO SCH ×2 (09:45→21:51)
[2018-07-16] MEDS: MULTIPLE VITAMINS W/ MINERALS TAB PO SCH (09:45)
[2018-07-16] MEDS: ENOXAPARIN SOD 40 MG/0.4 ML SYRINGE SC SCH (09:46)
[2018-07-16 13:00] VITALS: BP 123/92
[2018-07-16 17:00] VITALS: BP 122/64
[2018-07-16] MEDS: ATORVASTATIN 20 MG TAB PO SCH (21:50)
[2018-07-16] MEDS: INSULIN LANTUS (GLARGINE) 1 /0.01ml (100units/ml) SC SCH (21:51)
[2018-07-16 22:00] VITALS: BP 120/65
[2018-07-17 05:00] VITALS: BP 112/59
[2018-07-17] MEDS: PANTOPRAZOLE 40 MG TAB PO SCH (06:00)
[2018-07-17] MEDS: InsuLIN REG 1unit/0.01ml Soln (100units/ml) SC SCH ×4 (06:33→22:00)
[2018-07-17] MEDS: ACCU-CHEK COMFORT CURVE STRIP VI SCH ×4 (06:33→22:14)
[2018-07-17 09:00] VITALS: BP 132/73
[2018-07-17] MEDS: GABAPENTIN 100 MG CAP PO SCH ×2 (09:34→22:13)
[2018-07-17] MEDS: ASCORBIC ACID 500 MG TAB PO SCH ×2 (09:34→22:14)
[2018-07-17] MEDS: DOCUSATE SOD 100 MG CAP PO SCH ×2 (09:34→22:13)
[2018-07-17] MEDS: MULTIPLE VITAMINS W/ MINERALS TAB PO SCH (09:34)
[2018-07-17] MEDS: cefTRIAXone 1GM/10ml IVPUSH 10 ML IV SCH (09:35)
[2018-07-17] MEDS: ENOXAPARIN SOD 40 MG/0.4 ML SYRINGE SC SCH (09:35)
[2018-07-17] MEDS: CARVEDILOL 3.125 MG TAB PO SCH ×2 (09:35→17:08)
[2018-07-17] MEDS: HYDROcodone-ACET 5/325MG TAB PO PRN ×2 (10:02→17:08)
[2018-07-17 13:00] VITALS: BP 143/86
[2018-07-17 17:17] VITALS: BP 138/66
[2018-07-17] MEDS: ONDANSETRON HCL 4 MG/2 ML VIAL IV PRN (18:43)
[2018-07-17 22:00] VITALS: BP 115/64
[2018-07-17] MEDS: ATORVASTATIN 20 MG TAB PO SCH (22:13)
[2018-07-17] MEDS: INSULIN LANTUS (GLARGINE) 1 /0.01ml (100units/ml) SC SCH (22:14)
[2018-07-18] MEDS: HYDROcodone-ACET 5/325MG TAB PO PRN ×2 (01:35→09:00)
[2018-07-18 05:34] VITALS: BP 118/57
[2018-07-18] MEDS: PANTOPRAZOLE 40 MG TAB PO SCH (06:00)
[2018-07-18] MEDS: InsuLIN REG 1unit/0.01ml Soln (100units/ml) SC SCH ×2 (06:33→11:30)
[2018-07-18] MEDS: ACCU-CHEK COMFORT CURVE STRIP VI SCH ×2 (06:33→11:30)
[2018-07-18 09:00] VITALS: BP 150/87
[2018-07-18] MEDS: CARVEDILOL 3.125 MG TAB PO SCH (09:00)
[2018-07-18] MEDS: cefTRIAXone 1GM/10ml IVPUSH 10 ML IV SCH (10:28)
[2018-07-18] MEDS: MULTIPLE VITAMINS W/ MINERALS TAB PO SCH (10:28)
[2018-07-18] MEDS: DOCUSATE SOD 100 MG CAP PO SCH (10:28)
[2018-07-18] MEDS: GABAPENTIN 100 MG CAP PO SCH (10:29)
[2018-07-18] MEDS: ENOXAPARIN SOD 40 MG/0.4 ML SYRINGE SC SCH (10:29)
[2018-07-18] MEDS: ASCORBIC ACID 500 MG TAB PO SCH (10:29)
[2018-07-18] MEDS: ONDANSETRON HCL 4 MG/2 ML VIAL IV PRN (12:04)
[2018-07-18 13:00] VITALS: BP 141/80
[2018-07-18 13:54] VITALS: BP 141/80
== END 2018-07-18 15:32 | disposition home health service (06) | DRG 565 ==
LOC: EDBD 19:31 → ER 19:43 → OVERFLOW 19:44 → WEST WING 07-15 03:56
PROVIDERS: ADMIT Nurse Practitioner Family; ATTEND Nurse Practitioner Family
DX: T87.89 Other complications of amputation stump (principal); L03.115 Cellulitis of right lower limb; E44.0 Moderate protein-calorie malnutrition; I13.0 Hypertensive heart and chronic kidney disease with heart failure and stage 1 through stage 4 chronic kidney disease, or unspecified chronic kidney disease; I50.32 Chronic diastolic (congestive) heart failure; L03.116 Cellulitis of left lower limb; N39.0 Urinary tract infection, site not specified; I50.9 Heart failure, unspecified; I11.0 Hypertensive heart disease with heart failure; E11.40 Type 2 diabetes mellitus with diabetic neuropathy, unspecified; E11.51 Type 2 diabetes mellitus with diabetic peripheral angiopathy without gangrene; I25.10 Atherosclerotic heart disease of native coronary artery without angina pectoris; I48.91 Unspecified atrial fibrillation; E11.22 Type 2 diabetes mellitus with diabetic chronic kidney disease; E86.0 Dehydration; Y83.8 Other surgical procedures as the cause of abnormal reaction of the patient, or of later complication, without mention of misadventure at the time of the procedure; M85.80 Other specified disorders of bone density and structure, unspecified site; N18.3 Chronic kidney disease, stage 3 (moderate); Z79.01 Long term (current) use of anticoagulants; Z79.4 Long term (current) use of insulin; Z82.49 Family history of ischemic heart disease and other diseases of the circulatory system; Z89.431 Acquired absence of right foot; Z95.5 Presence of coronary angioplasty implant and graft; Z86.718 Personal history of other venous thrombosis and embolism; Z90.49 Acquired absence of other specified parts of digestive tract; Z68.31 Body mass index [BMI] 31.0-31.9, adult
CPT/HCPCS: 36415; 71045; 73700; 80048; 80053; 81001; 82962; 83605; 85025; 87081; 87086; 87088; 87186; 96365; 96372; 96375; 96376; 97163; J0696; J1815; J2405; J3490

== ENCOUNTER → 2018-09-13 | Day surgery (SDC) | payer MEDICARE, MEDICAID ==
[2018-09-12 16:19] LABS: Basophils # (auto) 0.1 uL; Eosinophils # (auto) 0.2 uL; Hemoglobin 13.8 g/dL (12.2-16.2); Lymphocytes # (auto) 2.3 uL; Mean Corpuscular Volume 82.8 fL (80.0-100.0); Neutrophils # (auto) 4.8 uL
[2018-09-12 16:22] LABS: Basophils % (auto) 1.1 % (0.0-2.0); Eosinophils % (auto) 2.3 % (0.0-7.0); Hematocrit 42.7 % (36.0-46.0); Lymphocytes % (auto) 27.8 % (10.0-50.0); Mean Corpuscular Hemoglobin 26.7 pg (28.0-32.0); Mean Corpuscular Hgb Conc. 32.3 g/dL (32.0-36.0); Monocytes # (auto) 0.8 uL; Monocytes % (auto) 9.8 % (0.0-12.0); Nucleated Red Blood Cells % 0.2 %; Platelet Count (auto) 305 10^3/uL (140-450); Red Blood Cells 5.16 10^6/uL (4.0-5.20); Red Cell Distribution Width 15.5 % (11.8-14.3); White Blood Cell 8.1 10^3/uL (4.4-10.8)
[2018-09-12 16:38] LABS: Albumin 3.3 g/dL (3.4-5.0); Calcium 9.1 mg/dL (8.5-10.1); Potassium 4.1 mmol/L (3.5-5.1)
[2018-09-12 16:40] LABS: INR 1.05 (0.9-1.15); Partial Thromboplastin Time 27.5 sec (23.78-33.04); Prothrombin Time 11.2 sec (9.27-12.13)
[2018-09-12 16:43] LABS: BUN/Creatinine Ratio 16.8; Bilirubin, Total 0.6 mg/dL (0.2-1.0); Total Protein 8.2 g/dL (6.4-8.2)
[~2018-09-13] VITALS: Ht 167.6 cm; Wt 72.6 kg
[~2018-09-13] MED LIST changes: +ACCU-CHEK COMFORT CURVE STRIP VI ONE; +BUPIVACAINE 0.75% INJ 10ML MPV SDV IJ ONE; +HYDROmorphone HCL 2 MG/ML VL IV PRN; +LIDOCAINE 1% HCL (LOCAL ANESTH.) INJ 20ML MDV ONE; +MIDAZOLAM HCL 1MG/1ML-2 ML VIAL ONE; +NALOXONE HCL 0.4 MG/ML VIAL IV PRN; +ONDANSETRON HCL 4 MG/2 ML VIAL IV ONE; +PROPOFOL 10 MG/ML 20 ML IV ONE; -RIVA20TA PO; -SIMV20TA90 OR; +ceFAZolin 1GM/50ML 50 ML IV ONE; +diphenhdrAMINE HCL 50 MG/1 ML VL ONE; +fentaNYL CITRATE 100 MCG/2 ML VL ONE
[2018-09-13 16:17] VITALS: BP 120/73
== END | disposition home or self-care (01) ==
LOC: SUR 13:35
PROVIDERS: ATTEND Podiatrist Foot & Ankle Surgery
DX: T81.30XA Disruption of wound, unspecified, initial encounter (principal); Z79.899 Other long term (current) drug therapy; Z98.890 Other specified postprocedural states; Z79.01 Long term (current) use of anticoagulants
CPT/HCPCS: 13160; 36415; 80053; 82962; 85025; 85610; 85730; 87070; 87075; 87077; 87186; 87205; C1887; J0690; J1200; J2001; J2250; J2704; J3010; J3490; J7030

== ENCOUNTER 2018-11-02 11:54 | Inpatient (IN) | payer MEDICARE, MEDICAID ==
[~2018-11-02] VITALS: Ht 167.6 cm; Wt 70.7 kg
[~2018-11-02 11:54] MED LIST changes: -ACCU-CHEK COMFORT CURVE STRIP VI ONE; -BUPIVACAINE 0.75% INJ 10ML MPV SDV IJ ONE; -HYDROmorphone HCL 2 MG/ML VL IV PRN; -LIDOCAINE 1% HCL (LOCAL ANESTH.) INJ 20ML MDV ONE; -MIDAZOLAM HCL 1MG/1ML-2 ML VIAL ONE; -NALOXONE HCL 0.4 MG/ML VIAL IV PRN; -ONDANSETRON HCL 4 MG/2 ML VIAL IV ONE; -PROPOFOL 10 MG/ML 20 ML IV ONE; -ceFAZolin 1GM/50ML 50 ML IV ONE; -diphenhdrAMINE HCL 50 MG/1 ML VL ONE; -fentaNYL CITRATE 100 MCG/2 ML VL ONE
[2018-11-02] MEDS ORDERED: SODIUM CHLORIDE 0.9% 500 ML IVB ONE (12:06)
[2018-11-02 13:06] LABS: Basophils # (auto) 0.1 uL; Monocytes # (auto) 0.8 uL; Neutrophils # (auto) 4.7 uL
[2018-11-02 13:08] LABS: Eosinophils # (auto) 0.2 uL; Eosinophils % (auto) 3.5 % (0.0-7.0); Hematocrit 33.9 % (36.0-46.0); Lymphocytes % (auto) 14.3 % (10.0-50.0); Mean Corpuscular Hemoglobin 26.4 pg (28.0-32.0); Mean Corpuscular Hgb Conc. 32.4 g/dL (32.0-36.0); Mean Corpuscular Volume 81.6 fL (80.0-100.0); Monocytes % (auto) 11.2 % (0.0-12.0); Nucleated Red Blood Cells % 0.1 %; Platelet Count (auto) 349 10^3/uL (140-450); Red Blood Cells 4.15 10^6/uL (4.0-5.20); Red Cell Distribution Width 15.8 % (11.8-14.3); White Blood Cell 6.8 10^3/uL (4.4-10.8)
[2018-11-02 13:24] LABS: Albumin 2.7 g/dL (3.4-5.0); Calcium 7.9 mg/dL (8.5-10.1); Potassium 3.8 mmol/L (3.5-5.1)
[2018-11-02 13:27] LABS: BUN/Creatinine Ratio 15.2; Bilirubin, Total 0.6 mg/dL (0.2-1.0); Total Protein 6.8 g/dL (6.4-8.2)
[2018-11-02] MEDS ORDERED: LORazepam 0.5 MG TAB PO PRN (15:45)
[2018-11-02] MEDS ORDERED: MORPHINE SULFATE 4 MG/ML SYR/VIAL IV PRN ×2 (15:45)
[2018-11-02] MEDS ORDERED: TEMAZEPAM 15 MG CAP PO PRN (15:45)
[2018-11-02] MEDS ORDERED: DEXTROSE (50%) 50ML SYRG IV PRN (15:45)
[2018-11-02] MEDS ORDERED: NITROGLYCERIN 0.4 MG SL TAB SL PRN (15:45)
[2018-11-02] MEDS ORDERED: PIPERACILLIN-TAZOB 3.375GM 100 ML IV ONE (15:45)
[2018-11-02] MEDS ORDERED: PROMETHAZINE HCL 25 MG/ML 1ML IV PRN (15:45)
[2018-11-02] MEDS ORDERED: ACETAMINOPHEN 500 MG TAB PO PRN (15:45)
[2018-11-02] MEDS ORDERED: HYDROcodone-ACET 5/325MG TAB PO PRN (15:45)
[2018-11-02] MEDS: SODIUM CHLORIDE 0.9% 1,000 ML IV SCH (16:38)
[2018-11-02] MEDS: ACCU-CHEK COMFORT CURVE STRIP VI SCH ×2 (16:54→23:08)
[2018-11-02] MEDS: InsuLIN REG 1unit/0.01ml Soln (100units/ml) SC SCH ×2 (16:57→22:00)
[2018-11-02 20:00] VITALS: BP 99/60
[2018-11-02 22:00] VITALS: BP 99/60
[2018-11-02] MEDS: SOTALOL HCL 80 MG TAB PO SCH (22:00)
[2018-11-02 22:29] LABS: Hematocrit 30.7 % (36.0-46.0)
[2018-11-02] MEDS: FAMOTIDINE 20 MG TAB PO SCH (23:07)
[2018-11-02] MEDS: GABAPENTIN 100 MG CAP PO SCH (23:08)
[2018-11-02] MEDS: INSULIN LANTUS (GLARGINE) 1 /0.01ml (100units/ml) SC SCH (23:08)
[2018-11-02] MEDS: PIPERACILLIN-TAZOB 3.375GM 100 ML IV SCH (23:08)
[2018-11-03 00:50] LABS: Hematocrit 29.7 % (36.0-46.0); Hemoglobin 9.6 g/dL (12.2-16.2)
[2018-11-03 02:33] LABS: Urine Bacteria FEW /hpf (None Seen); Urine Blood 2+ /uL (Negative); Urine Specific Gravity 1.008 (1.001-1.035); Urine WBC 176 /hpf (0 - 5); Urine WBC Clumps PRESENT /hpf (None Seen)
[2018-11-03] MEDS: SODIUM CHLORIDE 0.9% 1,000 ML IV SCH ×3 (02:44→21:56)
[2018-11-03 05:00] VITALS: BP 103/41
[2018-11-03] MEDS: ACCU-CHEK COMFORT CURVE STRIP VI SCH ×4 (05:45→21:58)
[2018-11-03] MEDS: PIPERACILLIN-TAZOB 3.375GM 100 ML IV SCH ×4 (05:45→23:48)
[2018-11-03] MEDS: InsuLIN REG 1unit/0.01ml Soln (100units/ml) SC SCH ×4 (06:02→21:58)
[2018-11-03 07:49] LABS: Basophils # (auto) 0.1 uL; Eosinophils # (auto) 0.4 uL; Hemoglobin 9.6 g/dL (12.2-16.2); Lymphocytes # (auto) 0.9 uL; Mean Corpuscular Hemoglobin 25.9 pg (28.0-32.0); White Blood Cell 5.2 10^3/uL (4.4-10.8)
[2018-11-03 07:51] LABS: Basophils % (auto) 1.7 % (0.0-2.0); Eosinophils % (auto) 8.3 % (0.0-7.0); Hematocrit 29.9 % (36.0-46.0); Lymphocytes % (auto) 17.8 % (10.0-50.0); Monocytes # (auto) 0.7 uL; Monocytes % (auto) 12.7 % (0.0-12.0); Neutrophils # (auto) 3.1 uL; Neutrophils % (auto) 59.5 % (37.0-80.0); Platelet Count (auto) 320 10^3/uL (140-450); Red Blood Cells 3.69 10^6/uL (4.0-5.20)
[2018-11-03 08:00] VITALS: BP_SYST 106; BP_SYST 131; BP_DIAS 59; BP_DIAS 85
[2018-11-03 08:05] LABS: Albumin 2.4 g/dL (3.4-5.0); BUN/Creatinine Ratio 12.9; Calcium 7.7 mg/dL (8.5-10.1); Potassium 3.6 mmol/L (3.5-5.1)
[2018-11-03 08:07] LABS: Bilirubin, Total 0.4 mg/dL (0.2-1.0); Total Protein 6.2 g/dL (6.4-8.2)
[2018-11-03] MEDS: MAGNESIUM OXIDE 400 MG TAB PO SCH (10:01)
[2018-11-03] MEDS: FAMOTIDINE 20 MG TAB PO SCH ×2 (10:01→21:57)
[2018-11-03] MEDS: GABAPENTIN 100 MG CAP PO SCH ×2 (10:01→21:57)
[2018-11-03] MEDS: SOTALOL HCL 80 MG TAB PO SCH ×2 (10:02→21:57)
[2018-11-03] MEDS ORDERED: ASPI81TA27 PO (11:50)
[2018-11-03] MEDS ORDERED: PANT-36 PO (11:50)
[2018-11-03] MEDS ORDERED: VORA1TAB PO (11:53)
[2018-11-03] MEDS ORDERED: VORT10TA PO (11:53)
[2018-11-03 12:50] VITALS: BP 95/45
[2018-11-03 17:00] VITALS: BP 126/70
[2018-11-03] MEDS: INSULIN LANTUS (GLARGINE) 1 /0.01ml (100units/ml) SC SCH ×2 (21:58→22:00)
[2018-11-03 22:00] VITALS: BP 104/60
[2018-11-04 04:57] VITALS: BP 118/74
[2018-11-04] MEDS: ACCU-CHEK COMFORT CURVE STRIP VI SCH ×4 (06:37→22:28)
[2018-11-04] MEDS: PIPERACILLIN-TAZOB 3.375GM 100 ML IV SCH ×3 (06:37→18:00)
[2018-11-04] MEDS: InsuLIN REG 1unit/0.01ml Soln (100units/ml) SC SCH ×5 (06:37→22:40)
[2018-11-04 06:43] LABS: Basophils # (auto) 0.1 uL; Eosinophils # (auto) 0.4 uL; Neutrophils # (auto) 3.5 uL; Nucleated Red Blood Cells % 0.1 %; White Blood Cell 5.7 10^3/uL (4.4-10.8)
[2018-11-04 06:46] LABS: Basophils % (auto) 1.2 % (0.0-2.0); Eosinophils % (auto) 6.3 % (0.0-7.0); Hematocrit 29.1 % (36.0-46.0); Hemoglobin 9.5 g/dL (12.2-16.2); Lymphocytes % (auto) 18.2 % (10.0-50.0); Mean Corpuscular Hemoglobin 26.7 pg (28.0-32.0); Mean Corpuscular Hgb Conc. 32.8 g/dL (32.0-36.0); Mean Corpuscular Volume 81.5 fL (80.0-100.0); Monocytes # (auto) 0.7 uL; Monocytes % (auto) 13.2 % (0.0-12.0); Neutrophils % (auto) 61.1 % (37.0-80.0); Platelet Count (auto) 292 10^3/uL (140-450); Red Blood Cells 3.57 10^6/uL (4.0-5.20); Red Cell Distribution Width 16.1 % (11.8-14.3)
[2018-11-04 07:02] LABS: Albumin 2.4 g/dL (3.4-5.0); Calcium 7.6 mg/dL (8.5-10.1); Potassium 3.9 mmol/L (3.5-5.1)
[2018-11-04 07:08] LABS: BUN/Creatinine Ratio 9.5; Bilirubin, Total 0.3 mg/dL (0.2-1.0); Total Protein 5.9 g/dL (6.4-8.2)
[2018-11-04] MEDS: SODIUM CHLORIDE 0.9% 1,000 ML IV SCH ×2 (07:40→17:40)
[2018-11-04 09:00] VITALS: BP 118/61
[2018-11-04] MEDS: MAGNESIUM OXIDE 400 MG TAB PO SCH (10:00)
[2018-11-04] MEDS: SOTALOL HCL 80 MG TAB PO SCH ×2 (10:00→22:25)
[2018-11-04] MEDS: FAMOTIDINE 20 MG TAB PO SCH ×2 (10:00→22:25)
[2018-11-04] MEDS: GABAPENTIN 100 MG CAP PO SCH ×2 (10:00→22:25)
[2018-11-04 13:00] VITALS: BP 132/79
[2018-11-04 16:29] VITALS: BP 125/72
[2018-11-04 21:49] VITALS: BP 110/66
[2018-11-04 21:50] VITALS: BP 110/66
[2018-11-04] MEDS: INSULIN LANTUS (GLARGINE) 1 /0.01ml (100units/ml) SC SCH (22:28)
[2018-11-05] MEDS: PIPERACILLIN-TAZOB 3.375GM 100 ML IV SCH ×2 (00:29→06:45)
[2018-11-05] MEDS: SODIUM CHLORIDE 0.9% 1,000 ML IV SCH ×2 (03:40→13:40)
[2018-11-05 04:55] VITALS: BP 125/74
[2018-11-05] MEDS: InsuLIN REG 1unit/0.01ml Soln (100units/ml) SC SCH ×4 (06:46→22:00)
[2018-11-05] MEDS: ACCU-CHEK COMFORT CURVE STRIP VI SCH ×4 (06:46→22:51)
[2018-11-05 09:00] VITALS: BP 133/59
[2018-11-05] MEDS: SOTALOL HCL 80 MG TAB PO SCH ×2 (10:00→22:46)
[2018-11-05] MEDS: GABAPENTIN 100 MG CAP PO SCH ×2 (10:00→22:45)
[2018-11-05] MEDS: FAMOTIDINE 20 MG TAB PO SCH ×2 (10:00→22:45)
[2018-11-05] MEDS: MAGNESIUM OXIDE 400 MG TAB PO SCH (10:00)
[2018-11-05] MEDS ORDERED: ERTAPENEM SOD INJ 1 GM in SODIUM CHL 0.9% 50 ML IV ONE (12:30)
[2018-11-05 12:58] VITALS: BP 134/86
[2018-11-05] MEDS ORDERED: DOCUSATE SOD 100 MG CAP PO ONE (15:00)
[2018-11-05 17:00] VITALS: BP 127/59
[2018-11-05 21:28] VITALS: BP 132/73
[2018-11-05] MEDS: INSULIN LANTUS (GLARGINE) 1 /0.01ml (100units/ml) SC SCH (22:00)
[2018-11-05] MEDS: DOCUSATE SOD 100 MG CAP PO SCH (22:45)
[2018-11-05] MEDS: LINEZOLID 600MG TABLET PO SCH (22:45)
[2018-11-06] MEDS: SODIUM CHLORIDE 0.9% 1,000 ML IV SCH ×2 (01:34→09:43)
[2018-11-06 04:47] VITALS: BP 133/73
[2018-11-06] MEDS: InsuLIN REG 1unit/0.01ml Soln (100units/ml) SC SCH ×3 (07:00→17:00)
[2018-11-06] MEDS: ACCU-CHEK COMFORT CURVE STRIP VI SCH ×3 (07:04→17:00)
[2018-11-06 08:40] VITALS: BP 124/76
[2018-11-06] MEDS: FAMOTIDINE 20 MG TAB PO SCH (10:00)
[2018-11-06] MEDS: LINEZOLID 600MG TABLET PO SCH (10:00)
[2018-11-06] MEDS: MAGNESIUM OXIDE 400 MG TAB PO SCH (10:00)
[2018-11-06] MEDS ORDERED: ERTAPENEM SOD INJ 1 GM in SODIUM CHL 0.9% 50 ML IV SCH (10:00)
[2018-11-06] MEDS: GABAPENTIN 100 MG CAP PO SCH (10:00)
[2018-11-06] MEDS: DOCUSATE SOD 100 MG CAP PO SCH (10:00)
[2018-11-06] MEDS: SOTALOL HCL 80 MG TAB PO SCH (10:00)
[2018-11-06 12:49] VITALS: BP 130/64
[2018-11-06 17:34] VITALS: BP 130/64
== END 2018-11-06 18:45 | disposition home health service (06) | DRG 871 ==
LOC: EDBD 11:54 → ER 11:58 → TELE 15:39 → TELE-WESTW 19:56
PROVIDERS: ADMIT Internal Medicine; ATTEND Family Medicine
DX: A41.9 Sepsis, unspecified organism (principal); E43 Unspecified severe protein-calorie malnutrition; E87.1 Hypo-osmolality and hyponatremia; L10.9 Pemphigus, unspecified; N30.81 Other cystitis with hematuria; I48.91 Unspecified atrial fibrillation; E11.22 Type 2 diabetes mellitus with diabetic chronic kidney disease; E11.65 Type 2 diabetes mellitus with hyperglycemia; I12.9 Hypertensive chronic kidney disease with stage 1 through stage 4 chronic kidney disease, or unspecified chronic kidney disease; N18.9 Chronic kidney disease, unspecified; D63.8 Anemia in other chronic diseases classified elsewhere; F03.90 Unspecified dementia, unspecified severity, without behavioral disturbance, psychotic disturbance, mood disturbance, and anxiety; E78.5 Hyperlipidemia, unspecified; E11.42 Type 2 diabetes mellitus with diabetic polyneuropathy; I25.10 Atherosclerotic heart disease of native coronary artery without angina pectoris; E87.8 Other disorders of electrolyte and fluid balance, not elsewhere classified; N30.21 Other chronic cystitis with hematuria; B96.20 Unspecified Escherichia coli [E. coli] as the cause of diseases classified elsewhere; E78.00 Pure hypercholesterolemia, unspecified; G62.9 Polyneuropathy, unspecified; H54.8 Legal blindness, as defined in USA; Z16.12 Extended spectrum beta lactamase (ESBL) resistance; Z82.49 Family history of ischemic heart disease and other diseases of the circulatory system; Z83.3 Family history of diabetes mellitus; Z90.49 Acquired absence of other specified parts of digestive tract
CPT/HCPCS: 36415; 74176; 80053; 81001; 82962; 83036; 83690; 85014; 85018; 85025; 85045; 87040; 87081; 87086; 87088; 87186; 87804; 93971; 94761; G0378; J1335; J1815; J2543

== ENCOUNTER 2019-01-14 19:24 | Inpatient (IN) | payer MEDICARE, MEDICAID ==
[~2019-01-14] VITALS: Ht 160 cm; Wt 62.9 kg
[~2019-01-14 19:24] MED LIST changes: +ASPI81TA27 PO; +PANT-36 PO; +VORA1TAB PO; +VORT10TA PO
[2019-01-14] MEDS ORDERED: SODIUM CHLORIDE 0.9% 1,000 ML IV ONE (19:49)
[2019-01-14 20:46] LABS: Basophils # (auto) 0.1 uL; Basophils % (auto) 0.6 % (0.0-2.0); Eosinophils # (auto) 0.1 uL
[2019-01-14 20:47] LABS: Hematocrit 27.6 % (36.0-46.0); Lymphocytes # (auto) 1.5 uL; Lymphocytes % (auto) 16.1 % (10.0-50.0); Mean Corpuscular Hemoglobin 26.3 pg (28.0-32.0); Mean Corpuscular Hgb Conc. 32.6 g/dL (32.0-36.0); Mean Corpuscular Volume 80.7 fL (80.0-100.0); Monocytes # (auto) 0.8 uL; Monocytes % (auto) 9.3 % (0.0-12.0); Neutrophils # (auto) 6.7 uL; Nucleated Red Blood Cells % 0.2 %; Platelet Count (auto) 360 10^3/uL (140-450); Red Blood Cells 3.42 10^6/uL (4.0-5.20); Red Cell Distribution Width 19.2 % (11.8-14.3); White Blood Cell 9.1 10^3/uL (4.4-10.8)
[2019-01-14 21:02] LABS: INR 1.41 (0.9-1.15); Partial Thromboplastin Time 31.1 sec (23.78-33.04); Prothrombin Time 14.8 sec (9.27-12.13)
[2019-01-14 21:05] LABS: Albumin 1.8 g/dL (3.4-5.0); BUN/Creatinine Ratio 23.9; Calcium 7.2 mg/dL (8.5-10.1); Potassium 4.1 mmol/L (3.5-5.1)
[2019-01-14 21:10] LABS: Bilirubin, Total 0.3 mg/dL (0.2-1.0)
[2019-01-15] MEDS ORDERED: ENOXAPARIN SOD 100 MG/1 ML SYRINGE SC ONE
[2019-01-15] MEDS ORDERED: ALBUTEROL SULF 2.5 MG/0.5ML(0.5%) NEB SOLN NEB ONE (00:45)
[2019-01-15] MEDS ORDERED: GABAPENTIN 100 MG CAP PO ONE (00:45)
[2019-01-15] MEDS ORDERED: ALPRAZolam 0.25 MG TAB PO ONE (00:45)
[2019-01-15 01:35] LABS: Urine Bacteria FEW /hpf (None Seen); Urine Blood Negative /uL (Negative); Urine Hyaline Cast FEW /lpf (0 - 2); Urine Specific Gravity 1.022 (1.001-1.035); Urine WBC 41 /hpf (0 - 5)
[2019-01-15] MEDS ORDERED: ONDANSETRON HCL 4 MG/2 ML VIAL IV PRN (05:45)
[2019-01-15] MEDS ORDERED: DEXTROSE (50%) 50ML SYRG IV PRN (05:45)
[2019-01-15] MEDS ORDERED: VANCOMYCIN PER PHARMACY 0 MG IV SCH (06:00)
[2019-01-15] MEDS ORDERED: ALBUMIN 25% 100 ML IV ONE (06:00)
[2019-01-15] MEDS ORDERED: FUROSEMIDE 40 MG/4 ML VIAL ONE (06:07)
[2019-01-15] MEDS: FUROSEMIDE 20 MG/2 ML VIAL IV SCH ×2 (06:10→18:08)
[2019-01-15] MEDS: InsuLIN REG 1unit/0.01ml Soln (100units/ml) SC SCH ×4 (07:00→22:30)
[2019-01-15] MEDS: ACCU-CHEK COMFORT CURVE STRIP VI SCH ×4 (07:26→22:30)
[2019-01-15] MEDS: VANCOMYCIN 750 MG in D5W 5% 250 ML IV SCH (08:00)
[2019-01-15 08:17] LABS: Basophils # (auto) 0 uL; Basophils % (auto) 0.4 % (0.0-2.0); Eosinophils # (auto) 0 uL; Hematocrit 26.3 % (36.0-46.0); Nucleated Red Blood Cells % 0.2 %; Red Blood Cells 3.26 10^6/uL (4.0-5.20)
--- NOTE | 2019-01-15 08:18 | NUR ---
AIR MATTRESS: Placed a call to melinda to check if we have air mattress general rental available, unable to reach melinda. Order air mattress to Joel Proctor per MD order. Order number [id number] ETA [id number]. Call Joel Proctor at if need to follow up
[2019-01-15 08:22] LABS: Eosinophils % (auto) 0.3 % (0.0-7.0); Hemoglobin 8.5 g/dL (12.2-16.2); Lymphocytes # (auto) 1.5 uL; Lymphocytes % (auto) 19.3 % (10.0-50.0); Mean Corpuscular Hgb Conc. 32.2 g/dL (32.0-36.0); Mean Corpuscular Volume 80.5 fL (80.0-100.0); Monocytes % (auto) 12.6 % (0.0-12.0); Neutrophils # (auto) 5.3 uL; Neutrophils % (auto) 67.4 % (37.0-80.0); Platelet Count (auto) 338 10^3/uL (140-450); Red Cell Distribution Width 19.3 % (11.8-14.3); White Blood Cell 7.8 10^3/uL (4.4-10.8)
[2019-01-15 08:24] LABS: Potassium 3.6 mmol/L (3.5-5.1)
[2019-01-15 08:31] LABS: Albumin 2.5 g/dL (3.4-5.0); BUN/Creatinine Ratio 27.9; Bilirubin, Total 0.3 mg/dL (0.2-1.0); Calcium 7.6 mg/dL (8.5-10.1); Total Protein 6.3 g/dL (6.4-8.2)
[2019-01-15] MEDS ORDERED: VANCOMYCIN 1GM/250ML 250 ML IV ONE (08:37)
[2019-01-15] MEDS: cefTRIAXone 1GM/50ML D5W 50 ML IV SCH (09:18)
[2019-01-15] MEDS: PANTOPRAZOLE 40 MG/10 ML VIAL IV SCH (09:24)
[2019-01-15] MEDS ORDERED: ASPirin 81 mg TAB ONE (09:27)
[2019-01-15] MEDS: ASPirin-EC 81 mg tab PO SCH (09:30)
[2019-01-15] MEDS: CARVEDILOL 3.125 MG TAB PO SCH ×2 (09:30→22:30)
[2019-01-15] MEDS: GABAPENTIN 100 MG CAP PO SCH ×2 (09:31→22:30)
[2019-01-15] MEDS: HYDROcodone-ACET 5/325MG TAB PO PRN (11:12)
--- NOTE | 2019-01-15 11:43 | NUR ---
WOUND CARE NOTE: Wound care in to see patient per wound care request regarding multiple wounds that are noted present on admission. ER nurse took photograph of patient's wounds upon admission for reference. Patient is 83 years old female with admitting diagnosis of Acute Respiratory Distress. Patient is resting in bed in ER bed#12. Patient is awake and able to verbalize needs. She's in no stated pain at this time however mild pain noted upon turning. Skin assessment done with the assistance of patient's nurse, CHARLES Madison. Patient came in with large open full thickness sacral pressure injury. Wound measuring [id number] with undermining from 5318-9000 and deepest undermining of 4cm at 0500. Wound bed is red with palpable bone and has yellow adherent slough, bright and dark red vandana wound, moderate serous drainage noted, no odor noted. Patient is at [facility] recently and came in with multiple wounds and she undergone debridement of said sacral wound on 01/10/[address] Vergara. 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 Her R distal sacrum has 3x1.5cm intact black eschar (Unstageable pressure injury). Cleansed sacral pressure injury with wound cleanser, patted dry with gauze, applied Thera honey gel to wound base area, pack wound cavity with NS moistened gauze, covered with dry sterile dressing. Applied Z Guard cream to lower sacral/buttocks. Patient also came in with multiple Unstageable pressure injury to Rt posterolateral calf (6x5cm), Distal R lower leg (1.5x2cm), Medial back (1x0.8cm), Proximal posterolateral back (1.5x2.5cm), and distal R lateral back (1.2x2cm). Wounds are covered with black hard eschar with bright red vandana wound, no drainage/odor noted, left open to air. Patient has well healed R forefoot stump history of transmetatarsal amputation. Her Rt. lateral heel has intact skin with slowly blanching redness (Stage 1 pressure injury). Small (0.6x0.6cm) dry intact scab noted to her L posterior heel, appears to be from old resolving wound. Repositioned patient for comfort facing her Rt side, redistributed pressure points with rolled blankets.Patient tolerated well. Sampson Diaz is aware of needs of air mattress. She informed wound care that there's air mattress general rental is available and being cleaned, will bring to E.R. when done cleaning. RECOMMENDATION: Daily/PRN dressing change to sacral wound; BID/PRN cleaning and application of Barrier cream to lower sacral/buttocks, perineum per MD order, Dietary consult, frequent turning and repositioning schedule as condition permits, redistribute pressure points with pillows, air mattress (ordered), elevate heels on pillows,continue monitoring by wound care while patient is hospitalized. Addendum: 01/15/19 at 1600 by Mary Rooney RN Amended: Links added.
--- NOTE | 2019-01-15 15:16 | NUR ---
SWALLOW EVALUATED IN EMERGENCY DEPT. PATIENT HAS NO TEETH. ABLE TO TOLERATE PUREE TEXTURE WITH THIN LIQUIDS. NURSING NOTIFIED.
[2019-01-15] MEDS: Glucerna Carbsteady SHAKE Vanilla 8oz PO SCH ×2 (18:00→22:30)
[2019-01-15] MEDS ORDERED: PROMETHAZINE W/CODEINE 5 ML ORAL SYRUP PO ONE (22:30)
[2019-01-15] MEDS ORDERED: DILTIAZEM HCL 25 MG/5 ML VIAL IV ONE (23:15)
[2019-01-16] MEDS: ACETAMINOPHEN 325 MG TAB PO PRN (01:15)
[2019-01-16] MEDS: HYDROcodone-ACET 5/325MG TAB PO PRN ×2 (04:24→19:00)
[2019-01-16 04:44] LABS: Basophils # (auto) 0 uL; Basophils % (auto) 0.3 % (0.0-2.0); Eosinophils # (auto) 0 uL; Eosinophils % (auto) 0.1 % (0.0-7.0); Hemoglobin 7.8 g/dL (12.2-16.2); Lymphocytes # (auto) 1.5 uL; Lymphocytes % (auto) 27.2 % (10.0-50.0); Mean Corpuscular Hgb Conc. 32.3 g/dL (32.0-36.0); Mean Corpuscular Volume 80.5 fL (80.0-100.0); Monocytes # (auto) 0.6 uL; Neutrophils # (auto) 3.5 uL; Neutrophils % (auto) 61.4 % (37.0-80.0); Platelet Count (auto) 303 10^3/uL (140-450); Red Blood Cells 2.99 10^6/uL (4.0-5.20); Red Cell Distribution Width 19.9 % (11.8-14.3); White Blood Cell 5.7 10^3/uL (4.4-10.8)
[2019-01-16 05:11] LABS: Albumin 2.1 g/dL (3.4-5.0); Calcium 7.4 mg/dL (8.5-10.1); Potassium 3.9 mmol/L (3.5-5.1)
[2019-01-16 05:16] LABS: BUN/Creatinine Ratio 29.6; Bilirubin, Total 0.2 mg/dL (0.2-1.0)
[2019-01-16] MEDS: FUROSEMIDE 20 MG/2 ML VIAL IV SCH ×2 (05:52→17:38)
[2019-01-16] MEDS ORDERED: ALBUMIN 25% 100 ML IV ONE (06:30)
[2019-01-16] MEDS: InsuLIN REG 1unit/0.01ml Soln (100units/ml) SC SCH ×4 (06:50→22:00)
[2019-01-16] MEDS: ACCU-CHEK COMFORT CURVE STRIP VI SCH ×3 (06:50→17:00)
--- NOTE | 2019-01-16 07:03 | NUR ---
PATIENT WAS FOUND SLEEPING ON HER BED, ALERT AND ORIENTED X2. NO REPORT OF PAIN AT THIS TIME. Addendum: 01/17/19 at 0415 by Odalys Ott RN wrong date and time. correct date and time: 01/16/2019 at 2000.
[2019-01-16] MEDS: VANCOMYCIN 750 MG in D5W 5% 250 ML IV SCH (07:41)
[2019-01-16] MEDS: Glucerna Carbsteady SHAKE Vanilla 8oz PO SCH ×5 (09:03→22:00)
[2019-01-16] MEDS: cefTRIAXone 1GM/50ML D5W 50 ML IV SCH (09:03)
[2019-01-16] MEDS: ENOXAPARIN SOD 40 MG/0.4 ML SYRINGE SC SCH (09:03)
[2019-01-16] MEDS: PANTOPRAZOLE 40 MG/10 ML VIAL IV SCH (09:03)
[2019-01-16] MEDS: CARVEDILOL 3.125 MG TAB PO SCH ×2 (09:13→22:00)
[2019-01-16] MEDS: GABAPENTIN 100 MG CAP PO SCH ×2 (09:14→22:35)
[2019-01-16] MEDS: ASPirin-EC 81 mg tab PO SCH (09:51)
[2019-01-16] MEDS ORDERED: SOTALOL HCL 80 MG TAB PO SCH (10:00)
--- NOTE | 2019-01-16 13:00 | NUR ---
Telemetry admit from ER STEFANI TAVAREZ admitted to Telemetry unit after SBAR received. Patient oriented to Nella lucero RN, unit, room, bed, and unit policies regarding patient care and visiting hours. Patient now on continuous telemetry monitoring, tele box # 45 and telemetry reading on arrival to unit is SR 61. Patient placed on bedside oxygen, weighed by bedscale and encouraged to call if they need something. All questions and concerns addressed.
[2019-01-16 13:30] VITALS: BP 117/54
--- NOTE | 2019-01-16 16:26 | NUR ---
MRSA SWAB SENT TO LAB
[2019-01-16 16:51] VITALS: BP 96/51
--- NOTE | 2019-01-16 18:30 | NUR ---
PROVIDER: CARDIO DR ALEX AT BEDSIDE
[2019-01-16 20:00] VITALS: BP 104/54
[2019-01-16 22:00] VITALS: BP 104/54
[2019-01-17] VITALS (7 sets, daily range): BP systolic 93–111; BP diastolic 48–66
[2019-01-17] MEDS: ACCU-CHEK COMFORT CURVE STRIP VI SCH ×5 (01:44→22:04)
[2019-01-17 05:30] LABS: Albumin 2.2 g/dL (3.4-5.0); Calcium 7.5 mg/dL (8.5-10.1); Potassium 4.2 mmol/L (3.5-5.1)
[2019-01-17 05:33] LABS: BUN/Creatinine Ratio 32.1; Bilirubin, Total 0.2 mg/dL (0.2-1.0); Total Protein 5.9 g/dL (6.4-8.2)
[2019-01-17] MEDS: FUROSEMIDE 20 MG/2 ML VIAL IV SCH ×2 (05:49→20:23)
[2019-01-17] MEDS: Glucerna Carbsteady SHAKE Vanilla 8oz PO SCH ×4 (05:49→21:55)
[2019-01-17] MEDS: InsuLIN REG 1unit/0.01ml Soln (100units/ml) SC SCH ×4 (05:49→22:04)
[2019-01-17] MEDS: VANCOMYCIN 750 MG in D5W 5% 250 ML IV SCH (09:22)
[2019-01-17] MEDS: CARVEDILOL 3.125 MG TAB PO SCH ×2 (10:00→21:56)
[2019-01-17] MEDS: GABAPENTIN 100 MG CAP PO SCH ×2 (10:00→21:55)
[2019-01-17] MEDS: ASPirin-EC 81 mg tab PO SCH (10:00)
[2019-01-17] MEDS: PANTOPRAZOLE 40 MG/10 ML VIAL IV SCH (15:46)
[2019-01-17] MEDS: cefTRIAXone 1GM/50ML D5W 50 ML IV SCH (15:46)
[2019-01-17] MEDS: ENOXAPARIN SOD 40 MG/0.4 ML SYRINGE SC SCH (15:46)
[2019-01-17] MEDS: HYDROcodone-ACET 5/325MG TAB PO PRN (20:38)
[2019-01-18] VITALS (10 sets, daily range): BP systolic 99–122; BP diastolic 52–70
--- NOTE | 2019-01-18 04:04 | NUR ---
DRESSING CHANGE DRESSING CHANGE PERFORMED TO SACRAL WOUND PER ORDERS. MOD MALDONADO COLORED DRAINAGE NOTED AT WOUND BED. CLEANSED SACRAL WOUND WITH WOUND CLEANSER, PATTED DRY WITH STERILE GAUZE, APPLIED THERA HONEY GEL TO WOUND BASE AREA, PACKED WOUND CAVITY WITH NS MOISTENED GAUZE ROLL. COVERED WOUND WITH ABD PAD AND SECURED WITH MEDIPORE TAPE. BARRIER CREAM APPLIED TO SACRAL/DEE AREA. MCCRARY AND DEE CARE PROVIDED.
[2019-01-18] MEDS: Glucerna Carbsteady SHAKE Vanilla 8oz PO SCH ×4 (06:00→21:48)
[2019-01-18] MEDS: FUROSEMIDE 20 MG/2 ML VIAL IV SCH ×2 (06:21→17:49)
[2019-01-18] MEDS: InsuLIN REG 1unit/0.01ml Soln (100units/ml) SC SCH ×4 (06:21→22:00)
[2019-01-18] MEDS: ACCU-CHEK COMFORT CURVE STRIP VI SCH ×4 (06:21→22:00)
[2019-01-18] MEDS: HYDROcodone-ACET 5/325MG TAB PO PRN ×2 (06:33→21:46)
--- NOTE | 2019-01-18 07:40 | NUR ---
OPENING PATIENT IN BED, AWAKE, BED IN LOWEST POSITION, CALL LIGHT WITHIN REACH. NO DISTRESS NOTED AT THIS TIME MRSA NEGATIVE WOUND CULTURE COMPLETED STILL PENDING RESULT HGB 7.8 SODIUM 134 BUN 19 CARDIAC MD ALEX , STATES TO D/C SOTOLOL, INCREASED COREG DOSAGE PER NOC NURSE. WILL F/U WITH MORNING ASSESSMENT
[2019-01-18 08:17] LABS: Calcium 7.2 mg/dL (8.5-10.1); Potassium 4.3 mmol/L (3.5-5.1)
[2019-01-18 08:22] LABS: BUN/Creatinine Ratio 32.2; Bilirubin, Total 0.2 mg/dL (0.2-1.0); Total Protein 5.8 g/dL (6.4-8.2)
[2019-01-18] MEDS: GABAPENTIN 100 MG CAP PO SCH ×2 (09:38→21:46)
[2019-01-18] MEDS: ENOXAPARIN SOD 40 MG/0.4 ML SYRINGE SC SCH (09:38)
[2019-01-18] MEDS: PANTOPRAZOLE 40 MG/10 ML VIAL IV SCH (09:38)
[2019-01-18] MEDS: cefTRIAXone 1GM/50ML D5W 50 ML IV SCH (09:38)
[2019-01-18] MEDS: ASPirin-EC 81 mg tab PO SCH (09:41)
[2019-01-18] MEDS: CARVEDILOL 3.125 MG TAB PO SCH ×2 (10:00→22:32)
[2019-01-18] MEDS: VANCOMYCIN 1GM/250ML 250 ML IV SCH (12:20)
--- NOTE | 2019-01-18 12:32 | NUR ---
Nutrition Assessment/consult Notes Please see attached link for complete assessment Est. Needs based on BW (67 kg): 8086-5032 kcal (23-25 kcal/kgBW), 67-87 gms pro (1.0-1.3 gms/kgBW r/t wounds severe hypoalb). Will continue to monitor pertinent labs and reassess nutrient needs prn Addendum: 01/18/19 at [address] Amended: Links added.
--- NOTE | 2019-01-18 12:49 | NUR ---
paging md nielson per nisreen note from yesterday 1800 1 unit of prbc not carried out by day/noc shift d/t no actual order. paging md to notify and verify if he would like to place this order and for it to be carried out today. current hgb known is 7.8
[2019-01-18 14:09] LABS: Hemoglobin 7.6 g/dL (12.2-16.2)
[2019-01-18] MEDS: MULTIPLE VITAMINS W/ MINERALS TAB PO SCH (21:47)
[2019-01-18] MEDS: Pro-Stat SF 30ml Vanilla PO SCH (21:47)
[2019-01-18] MEDS: ASCORBIC ACID 500 MG TAB PO SCH (21:47)
[2019-01-19 05:00] VITALS: BP 111/55
[2019-01-19] MEDS: ACCU-CHEK COMFORT CURVE STRIP VI SCH ×4 (06:18→22:00)
[2019-01-19] MEDS: FUROSEMIDE 20 MG/2 ML VIAL IV SCH ×2 (06:18→17:17)
[2019-01-19] MEDS: Glucerna Carbsteady SHAKE Vanilla 8oz PO SCH ×4 (06:18→22:00)
[2019-01-19] MEDS: InsuLIN REG 1unit/0.01ml Soln (100units/ml) SC SCH ×4 (06:19→23:03)
[2019-01-19 06:24] LABS: Basophils # (auto) 0 uL; Eosinophils # (auto) 0 uL; Lymphocytes # (auto) 1.4 uL; Monocytes # (auto) 0.5 uL; Monocytes % (auto) 10.5 % (0.0-12.0)
[2019-01-19 06:27] LABS: Basophils % (auto) 0.4 % (0.0-2.0); Eosinophils % (auto) 0.8 % (0.0-7.0); Hematocrit 27.9 % (36.0-46.0); Hemoglobin 9.1 g/dL (12.2-16.2); Mean Corpuscular Hemoglobin 26.6 pg (28.0-32.0); Mean Corpuscular Hgb Conc. 32.6 g/dL (32.0-36.0); Mean Corpuscular Volume 81.5 fL (80.0-100.0); Neutrophils % (auto) 60.3 % (37.0-80.0); Platelet Count (auto) 241 10^3/uL (140-450); Red Blood Cells 3.43 10^6/uL (4.0-5.20); Red Cell Distribution Width 19.3 % (11.8-14.3)
[2019-01-19 08:00] VITALS: BP 103/55
--- NOTE | 2019-01-19 08:40 | NUR ---
C/O COUGH, REQUESTING FOR COUGH MED. DR. MANN NOTIFIED. NEW ORDER SUZANNE YANCEY QIIker PRN. WILL CARRY OUT ORDER.
[2019-01-19] MEDS: cefTRIAXone 1GM/50ML D5W 50 ML IV SCH (10:08)
[2019-01-19] MEDS: VANCOMYCIN 1GM/250ML 250 ML IV SCH (10:08)
[2019-01-19] MEDS: PANTOPRAZOLE 40 MG/10 ML VIAL IV SCH (10:08)
[2019-01-19] MEDS: ASCORBIC ACID 500 MG TAB PO SCH ×2 (10:09→22:33)
[2019-01-19] MEDS: GABAPENTIN 100 MG CAP PO SCH ×2 (10:09→22:32)
[2019-01-19] MEDS: MULTIPLE VITAMINS W/ MINERALS TAB PO SCH ×2 (10:09→22:00)
[2019-01-19] MEDS: ENOXAPARIN SOD 40 MG/0.4 ML SYRINGE SC SCH (10:09)
[2019-01-19] MEDS: ASPirin-EC 81 mg tab PO SCH (10:10)
[2019-01-19] MEDS: CARVEDILOL 3.125 MG TAB PO SCH ×2 (10:10→22:00)
[2019-01-19] MEDS: Pro-Stat SF 30ml Vanilla PO SCH ×2 (10:11→22:00)
--- NOTE | 2019-01-19 14:20 | NUR ---
DRESSING TO SACRAL CHANGED, PT TOLERATED WELL. PT IS REPOSITIONED FOR COMFORT. WILL CONTINUE CARE.
--- NOTE | 2019-01-19 14:25 | NUR ---
OBTAINED NEW ORDER FROM DR. MANN SOTALOL 80MG PO BID, ORDER READ BACK AND VERIFIED, WILL CARRY OUT ORDER.
--- NOTE | 2019-01-19 15:03 | NUR ---
assessment Patient is a 83 year old female who is confused. Prior to admission patient lived home with her daughter Migdalia and functioned with assistance. Per Migdalia patient will return home to her prior living arrangements post discharge and she will transport her home. Patient has a fww and a wheelchair for home use. Patients PCP is Dr Gannon. Patient is on service with [facility]. Patient will need a resumption order on discharge. I informed Migdalia she has a right to speak to a bilingual social worker regarding all care. I informed Migdalia she has a right to participate in any and all discharge planning. Migdalia is aware of visiting hours on the hospital floor. I informed Migdalia she has a right to privacy. Patient does not have a POA and advanced directive. I have offered Migdalia information on POA and advanced directives. I informed Migdalia the advantages and benefits of having an Advanced Directive. Migdalia verbalized understanding and agreed to discharge plan home with home health. Addendum: 01/22/19 at 1506 by Marylu DICKENS Amended: Links added.
[2019-01-19 17:00] VITALS: BP 108/61
--- NOTE | 2019-01-19 19:26 | NUR ---
CARE ENDORSED TO AVA SOTO.
--- NOTE | 2019-01-19 19:40 | NUR ---
Opening Shift Note Assumed care of patient, awake and alert x3. No S/S of distress/SOB on 3L NC, denies pain. Instructed on POC and to call for assistance PRN, will continue to monitor for changes Q1hr and PRN. Patient repositioned with use of pillows to right side for comfort. Knutson draining to gravity.
[2019-01-19 20:00] VITALS: BP 119/72
[2019-01-19] MEDS: guaiFENesin-DM 100/10mg/5ml SYR PO PRN (20:11)
--- NOTE | 2019-01-19 20:11 | NUR ---
Cough Pt c/o of cough, medicated for cough at this time.
[2019-01-19 22:00] VITALS: BP 119/72
[2019-01-19] MEDS: SOTALOL HCL 80 MG TAB PO SCH (22:30)
[2019-01-19] MEDS: HYDROcodone-ACET 5/325MG TAB PO PRN (22:32)
[2019-01-20] MEDS: LORazepam 2MG/ML-1ML VIAL IV PRN (02:56)
[2019-01-20] MEDS: HYDROcodone-ACET 5/325MG TAB PO PRN (02:56)
--- NOTE | 2019-01-20 03:00 | NUR ---
Dressing Change Dressing on sacrum changed per MD order after patient had moderate soft bowel movement. Pt tolerated well, medicated for pain.
[2019-01-20 05:27] VITALS: BP 94/53
[2019-01-20] MEDS: FUROSEMIDE 20 MG/2 ML VIAL IV SCH ×2 (05:54→18:58)
[2019-01-20] MEDS: Glucerna Carbsteady SHAKE Vanilla 8oz PO SCH ×4 (06:00→22:44)
[2019-01-20] MEDS: ACCU-CHEK COMFORT CURVE STRIP VI SCH ×4 (06:11→22:44)
[2019-01-20] MEDS: InsuLIN REG 1unit/0.01ml Soln (100units/ml) SC SCH ×4 (06:13→22:41)
[2019-01-20 08:00] VITALS: BP 99/60
[2019-01-20] MEDS: CARVEDILOL 3.125 MG TAB PO SCH ×2 (10:00→22:00)
[2019-01-20] MEDS: PANTOPRAZOLE 40 MG/10 ML VIAL IV SCH (10:11)
[2019-01-20] MEDS: VANCOMYCIN 1GM/250ML 250 ML IV SCH (10:11)
[2019-01-20] MEDS: cefTRIAXone 1GM/50ML D5W 50 ML IV SCH (10:11)
[2019-01-20] MEDS: ENOXAPARIN SOD 40 MG/0.4 ML SYRINGE SC SCH (10:12)
[2019-01-20] MEDS: MULTIPLE VITAMINS W/ MINERALS TAB PO SCH ×2 (10:13→22:41)
[2019-01-20] MEDS: SOTALOL HCL 80 MG TAB PO SCH ×2 (10:13→22:40)
[2019-01-20] MEDS: GABAPENTIN 100 MG CAP PO SCH ×2 (10:13→22:41)
[2019-01-20] MEDS: ASPirin-EC 81 mg tab PO SCH (10:13)
[2019-01-20] MEDS: ASCORBIC ACID 500 MG TAB PO SCH ×2 (10:13→22:40)
[2019-01-20] MEDS: Pro-Stat SF 30ml Vanilla PO SCH ×2 (10:14→22:44)
--- NOTE | 2019-01-20 16:10 | NUR ---
DRESSING CHANGE: CLEAN SACRAL WOUND WITH WOUND CLEANSER, PATTED DRY WITH GAUZE, APPLIED THERA HONEY TO WOUND BASE. PACK WOUND BASE WITH NORMAL SALINE MOISTENED GAUZE. COVERED WOUND WITH STERILE DRESSING. PT TOLERATED WELL. WILL CONTINUE CARE.
[2019-01-20] MEDS: guaiFENesin-DM 100/10mg/5ml SYR PO PRN (16:32)
--- NOTE | 2019-01-20 19:18 | NUR ---
CARE ENDORSED TO FAITH SOTO. Signed: 01/20/19 at 1919 by Ronald Aden RN RN
--- NOTE | 2019-01-20 19:45 | NUR ---
Opening shift note: Assumed care for patient. Patient is alert and orient x3. Patient has no s/s of distress or sob. Patient is on 3L of O2 via nasal cannula. Patient denies pain. Dressing to sacrum is clean, dry and intact. IV in left forearm was flushed and is leaking so will be discontinued. Patient has been informed on poc and to call when needs assistance. Call light is within reach and bed is lowest position.
[2019-01-20 22:00] VITALS: BP 107/55
--- NOTE | 2019-01-21 01:00 | NUR ---
IV insertion IV access obtained, via clean sterile technique by inserting 22 gauge catheter on right hand. IV secured properly. No trauma to site. Patient tolerated procedure well. IV removal IV to left forearm 20g DC'd with sterile technique, catheter fully intact. Pressure dressing applied to site. Patient tolerated procedure well.
--- NOTE | 2019-01-21 04:34 | NUR ---
Family called for update.
[2019-01-21 05:33] VITALS: BP 105/66
[2019-01-21] MEDS: Glucerna Carbsteady SHAKE Vanilla 8oz PO SCH ×4 (05:55→21:21)
[2019-01-21] MEDS: FUROSEMIDE 20 MG/2 ML VIAL IV SCH ×2 (06:07→18:02)
[2019-01-21] MEDS: ACCU-CHEK COMFORT CURVE STRIP VI SCH ×4 (06:18→22:14)
[2019-01-21] MEDS: InsuLIN REG 1unit/0.01ml Soln (100units/ml) SC SCH ×4 (06:18→22:00)
[2019-01-21] MEDS: guaiFENesin-DM 100/10mg/5ml SYR PO PRN ×2 (06:24→21:20)
--- NOTE | 2019-01-21 07:00 | NUR ---
Closing shift note: Patient is resting with eyes closed with even unlabored breathing with 3L oxygen via nasal cannula. Patient bed is in lowest position and with phone and call light in reach. Endorsed care to morning CHARLES Mariscal.
--- NOTE | 2019-01-21 07:15 | NUR ---
OPENING SHIFT NOTE ASSUMED CARE OF PATIENT FROM REGULATORY ASSISTANT RN DANIE AND CHARLES CUEVAS. PATIENT IS AWAKE AND ALERT X3 (NAME, PLACE AND SITUATION) REORIENTED PATIENT TO DATE. PATIENT HAS NO S/S OF DISTRESS/SOB OR PAIN. INSTRUCTED PATIENT ON POC, PATIENT VERBALIZED UNDERSTANDING. BED IS IN LOWEST POSITION WITH SIDE RAILS RAISED X2, BED WHEELS LOCKED, MCCRARY IS HANGING BELOW BLADDER AND IS DRAINING YELLOW URINE, CALL LIGHT IS WITHIN REACH. WILL CONTINUE TO MONITOR.
[2019-01-21 07:47] VITALS: BP 97/57
[2019-01-21 09:00] VITALS: BP 97/57
--- NOTE | 2019-01-21 09:40 | NUR ---
CALLED MD MANN. INFORMED MD PER DR. ALEX'S NOTES HE WANTED SOTALOL TO BE DISCONTINUED. MD IS AWARE AND DISCONTINUED SOTALOL. WILL FOLLOW THROUGH WITH ORDERS.
[2019-01-21] MEDS: cefTRIAXone 1GM/50ML D5W 50 ML IV SCH (09:44)
[2019-01-21] MEDS: PANTOPRAZOLE 40 MG/10 ML VIAL IV SCH (09:44)
[2019-01-21] MEDS: GABAPENTIN 100 MG CAP PO SCH ×2 (09:45→21:20)
[2019-01-21] MEDS: ENOXAPARIN SOD 40 MG/0.4 ML SYRINGE SC SCH (09:45)
[2019-01-21] MEDS: ASCORBIC ACID 500 MG TAB PO SCH ×2 (09:45→21:19)
[2019-01-21] MEDS: ASPirin-EC 81 mg tab PO SCH (09:45)
[2019-01-21] MEDS: MULTIPLE VITAMINS W/ MINERALS TAB PO SCH ×2 (09:45→21:19)
[2019-01-21] MEDS: Pro-Stat SF 30ml Vanilla PO SCH ×2 (10:00→21:21)
[2019-01-21] MEDS: CARVEDILOL 3.125 MG TAB PO SCH ×2 (10:00→21:19)
--- NOTE | 2019-01-21 10:48 | NUR ---
CALLED PHARMACY INFORMED PHARMACIST VANCOMYCIN WAS GOING TO BE ADMINISTERED LATE. PER PHARMACY VANCOMYCIN IS OKAY TO HANG RIGHT NOW.
[2019-01-21] MEDS: VANCOMYCIN 1GM/250ML 250 ML IV SCH (11:00)
[2019-01-21 13:00] VITALS: BP 102/61
[2019-01-21 17:00] VITALS: BP 98/56
--- NOTE | 2019-01-21 19:20 | NUR ---
CLOSING SHIFT NOTE ENDORSED CARE TO PARK WORKER SUPERVISOR CHARLES HELTON AND CHARLES CUEVAS. PATIENT HAS NO S/S OF DISTRESS/SOB OR PAIN AT THIS TIME.
--- NOTE | 2019-01-21 19:45 | NUR ---
Opening shift note: Assumed care for patient from morning RNLoida. Patient is alert and orient x3. Patient has no s/s of distress or sob. Patient is on 3L of O2 via nasal cannula. Patient denies pain. Dressing to sacrum is clean, dry and intact. IV 22g to right hand was flushed with saline and is patent, clean and dry. Patient has been informed on poc and to call when needs assistance. Call light is within reach and bed is lowest position
[2019-01-21 22:00] VITALS: BP 119/62
--- NOTE | 2019-01-22 05:00 | NUR ---
DRESSING CHANGE: Foul smelling sacral wound with moderate purulent drainage. Sacral wound cleansed with wound tuckpointer cleaner caulker, patted dry with 4x4 gauze, applied Thera honey to base of wound. Used rolled moistened gauze to pack wound. Cover with absorbant pad and medipore tape. Patient tolerated dressing change well.
[2019-01-22 05:30] VITALS: BP 102/56
[2019-01-22] MEDS: Glucerna Carbsteady SHAKE Vanilla 8oz PO SCH ×4 (06:03→22:29)
[2019-01-22] MEDS: InsuLIN REG 1unit/0.01ml Soln (100units/ml) SC SCH ×4 (06:13→22:47)
[2019-01-22] MEDS: guaiFENesin-DM 100/10mg/5ml SYR PO PRN ×2 (06:13→22:28)
[2019-01-22] MEDS: FUROSEMIDE 20 MG/2 ML VIAL IV SCH ×2 (06:14→19:19)
[2019-01-22] MEDS: ACCU-CHEK COMFORT CURVE STRIP VI SCH ×4 (06:15→22:29)
--- NOTE | 2019-01-22 07:00 | NUR ---
Opening Shift Note Assumed care of patient, awake and alert to self. No S/S of distress/SOB or pain. Instructed on POC and to call for assist PRN, will continue to monitor for changes Q1hr and PRN.
--- NOTE | 2019-01-22 07:00 | NUR ---
Closing shift note: Patient is resting with eyes closed with even unlabored breathing with 3L oxygen via nasal cannula. Patient bed is in lowest position and with phone and call light in reach. Endorsed care to morning RN Tavares.
[2019-01-22 08:00] VITALS: BP 108/61
[2019-01-22 09:54] VITALS: BP 108/61
--- NOTE | 2019-01-22 10:10 | NUR ---
LAB CALLED TO INFORM ME THAT THE VANCO TROUGH HAD NOT BEEN DRAWN YET. WILL FOLLOW UP WITH LAB.
[2019-01-22] MEDS: ENOXAPARIN SOD 40 MG/0.4 ML SYRINGE SC SCH (11:08)
[2019-01-22] MEDS: GABAPENTIN 100 MG CAP PO SCH ×2 (11:10→22:28)
[2019-01-22] MEDS: CARVEDILOL 3.125 MG TAB PO SCH ×2 (11:10→22:27)
[2019-01-22] MEDS: MULTIPLE VITAMINS W/ MINERALS TAB PO SCH ×2 (11:10→22:28)
[2019-01-22] MEDS: ASCORBIC ACID 500 MG TAB PO SCH ×2 (11:10→22:27)
[2019-01-22] MEDS: Pro-Stat SF 30ml Vanilla PO SCH ×2 (11:11→22:29)
[2019-01-22] MEDS: PANTOPRAZOLE 40 MG/10 ML VIAL IV SCH (11:11)
[2019-01-22] MEDS: cefTRIAXone 1GM/50ML D5W 50 ML IV SCH (11:11)
[2019-01-22] MEDS: ASPirin-EC 81 mg tab PO SCH (11:11)
[2019-01-22] MEDS: VANCOMYCIN 1GM/250ML 250 ML IV SCH (12:36)
[2019-01-22 13:00] VITALS: BP 106/61
--- NOTE | 2019-01-22 13:32 | NUR ---
NOTIFIED DR. MANN THAT PHARMACY WANTS TO DC THE PATIENT'S VANCOMYCIN AND ROCEPHIN TO START A NEW MEDICATION.
--- NOTE | 2019-01-22 14:38 | NUR ---
DR. MANN APPROVED OF PHARMACY'S RECOMMENDATION
--- NOTE | 2019-01-22 14:50 | NUR ---
Nutrition Follow-up Notes Wt.: 66.8 kg as of 01/21/19 Pt's on oxygen via nasal cannula, asleep, in isolation room, no immediate family member at bedside during rounds this morning. Pt's no signs of distress noted earlier, currently on Pureed Consistent Carb diet with Glucerna Shakes 1 carton QID, and Prostat 1 pkt BID, has inadequate PO intake aeb 50% ave. consumed meals (x5) in last 3 days d/t pt refused, per nursing. Est. Needs based on BW (67 kg): 5152-7836 kcal (23-25 kcal/kgBW), 67-87 gms pro (1.0-1.3 gms/kgBW r/t wounds severe hypoalb). Will continue to monitor pertinent labs and reassess nutrient needs prn Labs: POC Gluc 256 H; 01/18/19 HbA1c 6.4 H, BUN 19 H. Gluc 177 H, Ca 7.2 L, Alb 2.0 L. Skin: Cabrera scale 10, high risk, pt's posterior sacrum, right lateral calf and back pressure ulcers per plant operations worker. Pls refer to burrito maker's notes 01/15/19 for further details. Noted pt's on MVI and Asc acid supplements. GI: Pt had 1 BM 01/19/19 per plant operations worker. PES: Altered nutrition related lab values r/t current/chronic medical condition aeb elev A1C, BUN severe hypoalb, hypocalcmeia, hyperglcycemia Will continue to monitor PO intake, skin status, pertinent labs and weight trend. F/u in 3 to 5 days. Rec.: 1.) Continue close supervision and feeding assistance prn during meals. 2.) Refer pt to CDE/RD for further nutrition education and weight monitoring upon discharge. 3.) Continue current plan of care.
[2019-01-22 17:00] VITALS: BP 102/57
--- NOTE | 2019-01-22 19:45 | NUR ---
Opening shift note: Assumed care for patient from morning RNTavares. Patient is alert and orient x3. Patient has no s/s of distress or sob. Patient is on 3L of O2 via nasal cannula. Patient denies pain. Dressing to sacrum is clean, dry and intact. IV 22g to right hand was flushed with saline and is patent, clean and dry. Patient has been informed on poc and to call when needs assistance. Call light is within reach and bed is lowest position.
[2019-01-22 22:00] VITALS: BP 134/73
[2019-01-22] MEDS: STERILE WATER IV SCH (22:48)
[2019-01-22] MEDS: COLISTIMETHATE SODIUM IV SCH (22:48)
[2019-01-22] MEDS: ACETAMINOPHEN 325 MG TAB PO PRN (22:49)
[2019-01-23 04:00] VITALS: BP 105/57
[2019-01-23] MEDS: FUROSEMIDE 20 MG/2 ML VIAL IV SCH ×2 (06:47→18:15)
[2019-01-23] MEDS: Glucerna Carbsteady SHAKE Vanilla 8oz PO SCH ×5 (06:47→21:12)
[2019-01-23] MEDS: InsuLIN REG 1unit/0.01ml Soln (100units/ml) SC SCH ×4 (06:47→21:11)
[2019-01-23] MEDS: ACCU-CHEK COMFORT CURVE STRIP VI SCH ×4 (06:48→21:11)
--- NOTE | 2019-01-23 07:45 | NUR ---
Opening Shift Note Assumed care of patient, awake and alert and oriented X2. No S/S of distress/SOB or pain at this time. Instructed on POC and to call for assist PRN, will continue to monitor for changes. Bilateral heels floated on pillows. Will continue to assist patient with turning at least Q2hrs.
[2019-01-23] MEDS: COLISTIMETHATE SODIUM IV SCH ×2 (08:27→19:39)
[2019-01-23] MEDS: STERILE WATER IV SCH ×2 (08:27→19:39)
[2019-01-23 09:00] VITALS: BP 116/47
[2019-01-23] MEDS: Pro-Stat SF 30ml Vanilla PO SCH ×2 (10:00→21:11)
[2019-01-23] MEDS: PANTOPRAZOLE 40 MG/10 ML VIAL IV SCH (10:50)
[2019-01-23] MEDS: MULTIPLE VITAMINS W/ MINERALS TAB PO SCH ×2 (10:50→21:13)
[2019-01-23] MEDS: ENOXAPARIN SOD 40 MG/0.4 ML SYRINGE SC SCH (10:50)
[2019-01-23] MEDS: CARVEDILOL 3.125 MG TAB PO SCH ×2 (10:51→21:13)
[2019-01-23] MEDS: ASPirin-EC 81 mg tab PO SCH (10:51)
[2019-01-23] MEDS: guaiFENesin-DM 100/10mg/5ml SYR PO PRN ×2 (10:51→18:13)
[2019-01-23] MEDS: ASCORBIC ACID 500 MG TAB PO SCH ×2 (10:51→21:13)
[2019-01-23] MEDS: GABAPENTIN 100 MG CAP PO SCH ×2 (10:51→21:13)
[2019-01-23] MEDS: ACETAMINOPHEN 325 MG TAB PO PRN ×2 (11:18→19:40)
--- NOTE | 2019-01-23 12:28 | NUR ---
WOUND CARE NOTE: Wound care in to see patient for reevaluation of multiple wounds that are present on admission. Patient continue resting on air bed in Rm. 207. Patient is awake and able to verbalize needs. She's in no stated pain. She needs assistance in turning and repositioning and her current Cabrera score is 10. Skin assessment done with the assistance of patient's nurse, CHARLES Thornton. Patient's sacral/coccyx continue to display large open full thickness pressure injury measuring [id number] with undermining from 3508-4323 with deepest undermining of 3cm at 0500. Wound bed is red with palpable bone and has yellow adherent slough, bright and dark red vandana wound, moderate serous drainage noted, no odor noted. Her R distal sacrum continue to display 4x2.5cm Unstageable pressure injury. Wound is red with yellow slough. Cleansed sacral pressure injury with wound cleanser, patted dry with gauze, applied Thera honey gel to wound base area, pack wound cavity with NS moistened gauze, covered with dry sterile dressing. Applied Z Guard cream to lower sacral/buttocks area. Patient's multiple Unstageable pressure injury to Rt posterolateral calf (7x3cm), Distal R lower leg (2x1.5cm), Medial back (1.2x0.5cm), Proximal posterolateral back (1x3cm), (1.5x2cm) and distal R lateral back (2x1cm) remain the same. Wounds are covered with black hard eschar with pink vandana wound, no drainage/odor noted, left open to air. Patient's has well healed R forefoot stump history of transmetatarsal amputation. Her Rt. heel (Stage 1 pressure injury) on admission is now resolved and display pink, blanchable skin. Small (0.5x0.5cm) dry intact scab to her L posterior heel remain clean and dry with blanchable mild redness to surrounding skin. New photograph of wounds are taken for reference. Repositioned patient for comfort facing her Rt. side, redistributed pressure points with pillows. Patient tolerated well. CHARLES Thornton at bedside. RECOMMENDATION: Continuation of all wound care orders prescribed by MD, continue with skin/wound plan of care, continue monitoring by wound care while patient is hospitalized. Addendum: 01/23/19 at 1652 by Mary Rooney RN Amended: Links added.
[2019-01-23 13:00] VITALS: BP 108/52
--- NOTE | 2019-01-23 16:14 | NUR ---
Dr Jagdeep bourgeois regarding arterial U/S report awaiting C/B. Will continue to monitor.
--- NOTE | 2019-01-23 16:26 | NUR ---
Dr Gannon repaged and made aware of arterial U/S results. No new orders received per Dr Gannon.
[2019-01-23 17:00] VITALS: BP 113/53
--- NOTE | 2019-01-23 19:00 | NUR ---
Patient care and report handed off to Stefanie SOTO and Griselda SOTO.
--- NOTE | 2019-01-23 19:45 | NUR ---
Opening shift note: Assumed care for patient from morning RNHillary. Patient is alert and orient x 3. Patient has no s/s of distress or sob. Patient is on 3L of O2 via nasal cannula. Dressing to sacrum is clean, dry and intact. IV 22g to right hand was flushed with saline and is patent, clean and dry. Patient has been informed on poc and to call when needs assistance. Call light is within reach and bed is lowest position.
[2019-01-23 22:00] VITALS: BP 106/60
[2019-01-24 05:00] VITALS: BP 135/67
[2019-01-24 05:49] LABS: Basophils # (auto) 0 uL; Basophils % (auto) 0.5 % (0.0-2.0); Eosinophils # (auto) 0.1 uL; Eosinophils % (auto) 2.3 % (0.0-7.0); Hematocrit 25.9 % (36.0-46.0); Hemoglobin 8.5 g/dL (12.2-16.2); Lymphocytes # (auto) 1.7 uL; Lymphocytes % (auto) 33.2 % (10.0-50.0); Mean Corpuscular Hemoglobin 27.4 pg (28.0-32.0); Mean Corpuscular Volume 83.1 fL (80.0-100.0); Monocytes # (auto) 0.8 uL; Monocytes % (auto) 15.5 % (0.0-12.0); Neutrophils # (auto) 2.5 uL; Neutrophils % (auto) 48.5 % (37.0-80.0); Nucleated Red Blood Cells % 0.1 %; Platelet Count (auto) 307 10^3/uL (140-450); Red Blood Cells 3.12 10^6/uL (4.0-5.20); White Blood Cell 5.1 10^3/uL (4.4-10.8)
[2019-01-24 06:13] LABS: Potassium 4.2 mmol/L (3.5-5.1)
[2019-01-24 06:19] LABS: Albumin 1.7 g/dL (3.4-5.0); BUN/Creatinine Ratio 33.3; Calcium 7.3 mg/dL (8.5-10.1)
[2019-01-24 06:22] LABS: Bilirubin, Total 0.3 mg/dL (0.2-1.0); Total Protein 6.2 g/dL (6.4-8.2)
[2019-01-24] MEDS: InsuLIN REG 1unit/0.01ml Soln (100units/ml) SC SCH ×4 (06:23→21:40)
[2019-01-24] MEDS: Glucerna Carbsteady SHAKE Vanilla 8oz PO SCH ×4 (06:24→21:26)
[2019-01-24] MEDS: ACCU-CHEK COMFORT CURVE STRIP VI SCH ×4 (06:24→21:29)
[2019-01-24] MEDS: FUROSEMIDE 20 MG/2 ML VIAL IV SCH ×2 (06:29→17:50)
--- NOTE | 2019-01-24 07:43 | NUR ---
OPENING SHIFT NOTE ASSUMED CARE OF PATIENT. PATIENT RESTING COMFORTABLY IN BED AT THIS TIME. NO S/S OF DISTRESS OR SOB NOTED. BED IN LOWEST LOCKED POSITION, CALL LIGHT WITHIN REACH. WILL CONTINUE TO MONITOR.
[2019-01-24 08:34] LABS: Red Cell Distribution Width 20.8 % (11.8-14.3)
[2019-01-24 08:59] VITALS: BP 114/56
[2019-01-24] MEDS: PANTOPRAZOLE 40 MG/10 ML VIAL IV SCH (09:03)
[2019-01-24] MEDS: ASCORBIC ACID 500 MG TAB PO SCH ×2 (09:04→21:25)
[2019-01-24] MEDS: CARVEDILOL 3.125 MG TAB PO SCH ×2 (09:04→21:25)
[2019-01-24] MEDS: COLISTIMETHATE SODIUM IV SCH ×2 (09:05→21:27)
[2019-01-24] MEDS: ASPirin-EC 81 mg tab PO SCH (09:05)
[2019-01-24] MEDS: MULTIPLE VITAMINS W/ MINERALS TAB PO SCH ×2 (09:05→21:25)
[2019-01-24] MEDS: STERILE WATER IV SCH ×2 (09:05→21:27)
[2019-01-24] MEDS: ENOXAPARIN SOD 40 MG/0.4 ML SYRINGE SC SCH (09:06)
[2019-01-24] MEDS: GABAPENTIN 100 MG CAP PO SCH ×2 (09:06→21:26)
[2019-01-24] MEDS: Pro-Stat SF 30ml Vanilla PO SCH ×2 (09:06→21:29)
[2019-01-24] MEDS: guaiFENesin-DM 100/10mg/5ml SYR PO PRN (12:18)
[2019-01-24 13:19] VITALS: BP 119/74
[2019-01-24 17:00] VITALS: BP 123/64
--- NOTE | 2019-01-24 18:39 | NUR ---
END OF SHIFT NOTE PATIENT RESTING COMFORTABLY IN BED AT THIS TIME. NO S/S OF DISTRESS OR SOB NOTED. BED IN LOWEST LOCKED POSITION, CALL LIGHT WITHIN REACH. WILL ENDORSE CARE TO NOC RN.
--- NOTE | 2019-01-24 19:20 | NUR ---
OPENING SHIFT NOTE ASSUMED CARE OF PATIENT FOR DAY SHIFT RN ALIDA. PATIENT IS ALERT AND ORIENTED X3 AND RESTING IN BED WITH EVEN AND UNLABORED RESPIRATIONS. WET PRODUCTIVE COUGH NOTED. 3L NC. NO S/S OF RESPIRATORY DISTRESS OR PAIN. PATIENT REORIENTED TO TIME, ELA BOOTS, AND NON SKID SOCKS APPLIED. SIDE RAILS UP X2, BED IN LOWEST POSITION, LOCKED, AND CALL LIGHT IN REACH. INSTRUCTED ON POC AND TO CALL FOR ASSIST PRN. WILL CONTINUE TO MONITOR.
[2019-01-24] MEDS: HYDROcodone-ACET 5/325MG TAB PO PRN (21:26)
[2019-01-24 22:00] VITALS: BP 105/58
--- NOTE | 2019-01-25 01:46 | NUR ---
DRESSING APPLIED TO RIGHT POSTERIOR LEG AND CALF ON ASSESSMENT, BLACKENED AREA ON THE BACK OF PATIENTS RIGHT LEG WAS DRAINING SEROSANGUINEOUS DRAINAGE FROM OLD BLACKENED SCABBED OVER WOUND. NON-ADHERING OPTIFOAM APPLIED AND NON ADHERING GAUZE ROLL WRAPPED AND TAPPED. PATIENT REPOSITIONED AND LEG ELEVATED. WILL CONTINUE TO MONITOR.
[2019-01-25 05:00] VITALS: BP 77/60
[2019-01-25] MEDS: FUROSEMIDE 20 MG/2 ML VIAL IV SCH ×2 (06:00→18:00)
[2019-01-25] MEDS: Glucerna Carbsteady SHAKE Vanilla 8oz PO SCH ×4 (06:00→23:01)
[2019-01-25] MEDS: InsuLIN REG 1unit/0.01ml Soln (100units/ml) SC SCH ×4 (07:00→22:00)
--- NOTE | 2019-01-25 07:05 | NUR ---
CLOSING SHIFT NOTE TRANSFERRED CARE OF PATIENT TO DAY SHIFT RN. PATIENT IS AWAKE RESTING IN BED. SHE IS ALERT AND ORIENTED X4 AT THIS TIME. NO S/S OF DISTRESS OR PAIN. BED IS IN LOWEST POSITION, LOCKED, AND CALL LIGHT IS IN REACH.
[2019-01-25] MEDS: ACCU-CHEK COMFORT CURVE STRIP VI SCH ×4 (07:07→23:01)
--- NOTE | 2019-01-25 07:50 | NUR ---
OPENING SHIFT NOTE PATIENT AWAKE AND ALERT RESTING COMFORTABLY IN BED AT THIS TIME. NO S/S OF DISTRESS OR SOB NOTED. BED IN LOWEST LOCKED POSITION, CALL LIGHT WITHIN REACH. WILL CONTINUE TO MONITOR.
[2019-01-25] MEDS: PANTOPRAZOLE 40 MG/10 ML VIAL IV SCH (09:56)
[2019-01-25] MEDS: ENOXAPARIN SOD 40 MG/0.4 ML SYRINGE SC SCH (09:56)
[2019-01-25] MEDS: ASCORBIC ACID 500 MG TAB PO SCH ×2 (09:57→22:09)
[2019-01-25] MEDS: Pro-Stat SF 30ml Vanilla PO SCH ×2 (09:57→23:01)
[2019-01-25] MEDS: GABAPENTIN 100 MG CAP PO SCH ×2 (09:57→22:09)
[2019-01-25] MEDS: MULTIPLE VITAMINS W/ MINERALS TAB PO SCH ×2 (09:57→22:09)
[2019-01-25] MEDS: STERILE WATER IV SCH ×2 (09:57→20:41)
[2019-01-25] MEDS: CLOPIDOGREL BISULFATE 75 MG TAB PO SCH (09:57)
[2019-01-25] MEDS: COLISTIMETHATE SODIUM IV SCH ×2 (09:57→20:41)
[2019-01-25] MEDS: ASPirin-EC 81 mg tab PO SCH (09:58)
[2019-01-25] MEDS: CARVEDILOL 3.125 MG TAB PO SCH ×2 (10:00→22:00)
--- NOTE | 2019-01-25 11:00 | NUR ---
WOUND CARE WOUND CARE COMPLETED ORDERED AT THIS TIME. PATIENT TOLERATED WELL. REPOSITIONED TO LEFT SIDE AT THIS TIME. CONTINUING TO MONITOR.
[2019-01-25] MEDS: guaiFENesin-DM 100/10mg/5ml SYR PO PRN (14:15)
--- NOTE | 2019-01-25 18:54 | NUR ---
END OF SHIFT NOTE PATIENT RESTING COMFORTABLY IN BED WITH EYES CLOSED, RESPIRATIONS EVEN AND UNLABORED, NO S/S OF DISTRESS OR SOB NOTED. BED IN LOWEST LOCKED POSITION, CALL LIGHT WITHIN REACH. WILL ENDORSE CARE TO NOC RN.
--- NOTE | 2019-01-25 19:35 | NUR ---
Opening Shift Note Assumed care of patient, awake and alert, legally blind and hard of hearing. No S/S of distress/SOB or pain. Knutson patent and draining. Instructed on POC and to call for assist PRN, patient verbalized understanding, turned to her side and every 2 hours, bed in lowest position, call light within reach, will continue to monitor for changes Q1hr and PRN.
[2019-01-25 22:13] VITALS: BP 93/51
[2019-01-25] MEDS: HYDROcodone-ACET 5/325MG TAB PO PRN (23:44)
[2019-01-26] VITALS (7 sets, daily range): BP systolic 85–101; BP diastolic 40–59
--- NOTE | 2019-01-26 05:00 | NUR ---
Wound dressing to sacrum soaked and changed, turned to her left side, patient tolerated well, will continue to monitor
[2019-01-26] MEDS: InsuLIN REG 1unit/0.01ml Soln (100units/ml) SC SCH ×4 (05:56→22:27)
[2019-01-26] MEDS: Glucerna Carbsteady SHAKE Vanilla 8oz PO SCH ×4 (05:56→22:00)
[2019-01-26] MEDS: FUROSEMIDE 20 MG/2 ML VIAL IV SCH ×2 (05:56→17:59)
[2019-01-26] MEDS: ACCU-CHEK COMFORT CURVE STRIP VI SCH ×4 (05:57→22:23)
--- NOTE | 2019-01-26 07:30 | NUR ---
Opening Shift Note Assumed care of patient, patient sleeping. No S/S of distress/SOB or pain. Instructed on POC and to call for assist PRN, will continue to monitor for changes Q1hr and PRN.
[2019-01-26] MEDS: STERILE WATER IV SCH ×2 (08:35→22:25)
[2019-01-26] MEDS: COLISTIMETHATE SODIUM IV SCH ×2 (08:35→22:25)
[2019-01-26] MEDS: PANTOPRAZOLE 40 MG/10 ML VIAL IV SCH (09:57)
[2019-01-26] MEDS: CARVEDILOL 3.125 MG TAB PO SCH ×2 (09:58→22:00)
[2019-01-26] MEDS: MULTIPLE VITAMINS W/ MINERALS TAB PO SCH ×2 (09:58→22:20)
[2019-01-26] MEDS: ASCORBIC ACID 500 MG TAB PO SCH ×2 (09:59→22:21)
[2019-01-26] MEDS: ENOXAPARIN SOD 40 MG/0.4 ML SYRINGE SC SCH (09:59)
[2019-01-26] MEDS: GABAPENTIN 100 MG CAP PO SCH ×2 (09:59→22:21)
[2019-01-26] MEDS: ASPirin-EC 81 mg tab PO SCH (09:59)
[2019-01-26] MEDS: CLOPIDOGREL BISULFATE 75 MG TAB PO SCH (09:59)
[2019-01-26] MEDS: Pro-Stat SF 30ml Vanilla PO SCH ×2 (10:00→22:00)
--- NOTE | 2019-01-26 15:03 | NUR ---
Nutrition Follow-up Notes Wt.: 62.9 kg yesterday. Noted 3.9 kg weight loss in lat 3 days likely d/t ? fluid loss aeb negative I & Os for past few days. Pt's in isolation room, on oxygen via nasal cannula, confused, no immediate family member at bedside when rounded this morning. Pt's no signs of distress noted earlier, had swallow eval by ST (01/25/19), currently on Pureed Consistent Carb diet with Glucerna Shakes 1 carton QID, and Prostat 1 pkt BID, has fair PO intake aeb 60% ave. consumed meals (x6) in last 3 days. Est. Needs based on BW (67 kg): 5335-0941 kcal (23-25 kcal/kgBW), 67-87 gms pro (1.0-1.3 gms/kgBW r/t wounds severe hypoalb). Will continue to monitor pertinent labs and reassess nutrient needs prn Labs: POC Gluc 95 wnl; 01/24/19 Gluc 149 H, Cr 0.53 L, Ca 7.3 L, Tpro 6.2 L, Alb 1.7 L; HbA1c 6.4 H Skin: Cabrera scale 10, high risk, pt's posterior sacrum, right lateral calf and back pressure ulcers per billet bed operator. Pls refer to paste maker's notes 01/23/19 for further details. Noted pt's on MVI and Asc acid supplements. GI: Pt had 1 BM 01/23/19 per billet bed operator. PES: Altered nutrition related lab values r/t current/chronic medical condition aeb elev A1C, BUN severe hypoalb, hypocalcemia, hyperglyccemia Will continue to monitor PO intake, skin status, pertinent labs and weight trend. F/u in 3 to 5 days. Rec.: 1.) Continue close supervision and feeding assistance prn during meals. 2.) Refer pt to CDE/RD for further nutrition education and weight monitoring upon discharge. 3.) Continue current plan of care.
[2019-01-26] MEDS: ACETAMINOPHEN 325 MG TAB PO PRN (18:00)
[2019-01-26] MEDS: guaiFENesin-DM 100/10mg/5ml SYR PO PRN (18:33)
--- NOTE | 2019-01-26 20:15 | NUR ---
Opening Shift Note: AOx2-3, resting in bed; periods of confusion. Currently 1 LO2 via NC that she does not wear at home; pain level 8/10, and uses a wheelchair at base. Bed alarm in place for patient safely. IV 22 g inserted 01/13/19: NSat 30 ml/hr. Knutson inserted on 01/15/19 for stict I/O, Patient is on a specialty mattress to preserve skin integrity. Skin: stage IV pressure on sacrum, generalized loose/dry/flaking, and unstageable on her right lower leg. Patient is on contact precautions for ESBL in her sacral wound. Legally blind. POC discussed and questions answered. Will continue to round and reposition prn.
--- NOTE | 2019-01-26 21:00 | NUR ---
Optifoam dressing changed on sacral wound.
--- NOTE | 2019-01-26 22:00 | NUR ---
2200 Carvedilol held related to low blood pressure of 87/48. Patient is asymptomatic. Will page for possible bolus order.
--- NOTE | 2019-01-26 22:17 | NUR ---
Page sent to Dr. Gannon: regarding patient's low blood pressure of 87/48. Per Dr. Gannon, give a 500 NS bolus x1.
[2019-01-27] VITALS (7 sets, daily range): BP systolic 89–122; BP diastolic 41–54
[2019-01-27] MEDS ORDERED: SODIUM CHLORIDE 0.9% 500 ML IV ONE
--- NOTE | 2019-01-27 01:00 | NUR ---
New IV: IV 22 g in right hand leaking. IV removed. New IV 22 g in left forearm started x1 attempt.
--- NOTE | 2019-01-27 01:15 | NUR ---
Blood pressure recheck 98/47. Will continue to trend values.
[2019-01-27] MEDS: guaiFENesin-DM 100/10mg/5ml SYR PO PRN (01:20)
[2019-01-27] MEDS: Glucerna Carbsteady SHAKE Vanilla 8oz PO SCH ×4 (04:49→22:54)
[2019-01-27] MEDS: FUROSEMIDE 20 MG/2 ML VIAL IV SCH (04:49)
--- NOTE | 2019-01-27 04:50 | NUR ---
Dressings on sacrum and right lower leg changed per order.
--- NOTE | 2019-01-27 04:55 | NUR ---
Held 0600 lasix related to low blood pressure of 97/50; consistently running low blood pressures.
[2019-01-27] MEDS: InsuLIN REG 1unit/0.01ml Soln (100units/ml) SC SCH ×4 (07:00→22:00)
[2019-01-27] MEDS: ACCU-CHEK COMFORT CURVE STRIP VI SCH ×4 (07:00→22:53)
[2019-01-27] MEDS: COLISTIMETHATE SODIUM IV SCH ×2 (08:33→22:32)
[2019-01-27] MEDS: STERILE WATER IV SCH ×2 (08:33→22:32)
[2019-01-27] MEDS: CARVEDILOL 3.125 MG TAB PO SCH ×2 (11:50→22:00)
[2019-01-27] MEDS: ASPirin-EC 81 mg tab PO SCH (11:50)
[2019-01-27] MEDS: ASCORBIC ACID 500 MG TAB PO SCH ×2 (11:51→22:34)
[2019-01-27] MEDS: ENOXAPARIN SOD 40 MG/0.4 ML SYRINGE SC SCH (11:51)
[2019-01-27] MEDS: GABAPENTIN 100 MG CAP PO SCH ×2 (11:51→22:32)
[2019-01-27] MEDS: MULTIPLE VITAMINS W/ MINERALS TAB PO SCH ×2 (11:51→22:34)
[2019-01-27] MEDS: Pro-Stat SF 30ml Vanilla PO SCH ×2 (11:51→22:00)
[2019-01-27] MEDS ORDERED: EPOETIN ALFA 10,000 UNIT/1 ML VIAL SC ONE (12:45)
[2019-01-27 13:27] LABS: Basophils # (auto) 0 uL; Basophils % (auto) 0.7 % (0.0-2.0); Eosinophils # (auto) 0.2 uL; Eosinophils % (auto) 2.7 % (0.0-7.0); Monocytes # (auto) 0.8 uL; Platelet Count (auto) 345 10^3/uL (140-450)
[2019-01-27 13:30] LABS: Hematocrit 24.5 % (36.0-46.0); Lymphocytes # (auto) 1.6 uL; Lymphocytes % (auto) 26.9 % (10.0-50.0); Mean Corpuscular Hemoglobin 27.1 pg (28.0-32.0); Mean Corpuscular Hgb Conc. 32.7 g/dL (32.0-36.0); Neutrophils # (auto) 3.4 uL; Neutrophils % (auto) 56.7 % (37.0-80.0); Red Blood Cells 2.95 10^6/uL (4.0-5.20)
[2019-01-27 13:38] LABS: Red Cell Distribution Width 21.1 % (11.8-14.3)
[2019-01-27 13:48] LABS: Potassium 3.9 mmol/L (3.5-5.1)
[2019-01-27 13:55] LABS: Albumin 1.6 g/dL (3.4-5.0); BUN/Creatinine Ratio 22.8; Bilirubin, Total 0.3 mg/dL (0.2-1.0); Calcium 7.8 mg/dL (8.5-10.1); Total Protein 6.1 g/dL (6.4-8.2)
[2019-01-27] MEDS: LORazepam 2MG/ML-1ML VIAL IV PRN (14:45)
[2019-01-27] MEDS: FUROSEMIDE 20 MG TAB PO SCH (18:00)
[2019-01-27] MEDS: ACETAMINOPHEN 325 MG TAB PO PRN (22:34)
[2019-01-28] MEDS: guaiFENesin-DM 100/10mg/5ml SYR PO PRN (02:16)
[2019-01-28 05:00] VITALS: BP 116/52
[2019-01-28] MEDS: FUROSEMIDE 20 MG TAB PO SCH ×2 (05:57→18:00)
[2019-01-28] MEDS: Glucerna Carbsteady SHAKE Vanilla 8oz PO SCH ×4 (05:58→22:24)
[2019-01-28] MEDS: ACCU-CHEK COMFORT CURVE STRIP VI SCH ×4 (05:58→22:25)
[2019-01-28] MEDS: InsuLIN REG 1unit/0.01ml Soln (100units/ml) SC SCH ×4 (06:02→22:00)
[2019-01-28] MEDS: STERILE WATER IV SCH ×2 (08:00→20:08)
[2019-01-28] MEDS: COLISTIMETHATE SODIUM IV SCH ×2 (08:00→20:08)
[2019-01-28 08:07] VITALS: BP 109/59
[2019-01-28] MEDS: Pro-Stat SF 30ml Vanilla PO SCH ×2 (10:00→22:25)
[2019-01-28] MEDS: CARVEDILOL 3.125 MG TAB PO SCH ×2 (10:40→22:00)
[2019-01-28] MEDS: MULTIPLE VITAMINS W/ MINERALS TAB PO SCH ×2 (10:40→22:23)
[2019-01-28] MEDS: GABAPENTIN 100 MG CAP PO SCH ×2 (10:41→22:23)
[2019-01-28] MEDS: PANTOPRAZOLE 40 MG TAB PO SCH (10:41)
[2019-01-28] MEDS: ASPirin-EC 81 mg tab PO SCH (10:41)
[2019-01-28] MEDS: ASCORBIC ACID 500 MG TAB PO SCH ×2 (10:41→22:23)
[2019-01-28 12:14] VITALS: BP 89/49
[2019-01-28 16:47] VITALS: BP_SYST 79; BP_SYST 93; BP_DIAS 47; BP_DIAS 48
--- NOTE | 2019-01-28 19:00 | NUR ---
PATIENT CARE ENDORSED ENDORSED CARE TO MELITA SOTO. PATIENT LAYING IN BED SEMI FOWLERS. NO ACUTE DISTRESS OR SOB. BED ALARM ON AND FALL PRECS IN PLACE
--- NOTE | 2019-01-28 19:30 | NUR ---
Opening Shift Note Assumed care of patient, awake and alert with breaths even and unlabored. No S/S of distress/SOB or pain noted. Bed is in lowest locked position with bed rails up x2 and call light is within reach of the patient. Will turn patient [id number] as needed prn. Instructed on POC and to call for assist PRN.
[2019-01-28 22:00] VITALS: BP 96/50
--- NOTE | 2019-01-29 03:30 | NUR ---
Sacral dressing change: Sacral dressing changed due to drainage. Thera honey not available in charge nurse office, Thera honey sheet used on wound and carried out dressing change as ordered.
[2019-01-29] MEDS: Glucerna Carbsteady SHAKE Vanilla 8oz PO SCH ×4 (05:44→21:54)
[2019-01-29] MEDS: FUROSEMIDE 20 MG TAB PO SCH ×2 (05:44→18:00)
[2019-01-29 05:49] VITALS: BP 124/52
[2019-01-29] MEDS: InsuLIN REG 1unit/0.01ml Soln (100units/ml) SC SCH ×4 (07:00→21:55)
[2019-01-29] MEDS: ACCU-CHEK COMFORT CURVE STRIP VI SCH ×4 (07:15→21:55)
--- NOTE | 2019-01-29 07:21 | NUR ---
Closing note: Patient resting in bed, breaths even and unlabored. No S/S of distress SOB noted. Bed is in lowest locked position with bed rails up x2 call light is in reach of the patient. Care endorsed to day shift nurse.
[2019-01-29 09:00] VITALS: BP 114/54
[2019-01-29] MEDS: COLISTIMETHATE SODIUM IV SCH ×2 (09:27→20:25)
[2019-01-29] MEDS: STERILE WATER IV SCH ×2 (09:27→20:25)
[2019-01-29] MEDS: guaiFENesin-DM 100/10mg/5ml SYR PO PRN (09:28)
[2019-01-29] MEDS: ASCORBIC ACID 500 MG TAB PO SCH ×2 (09:29→21:54)
[2019-01-29] MEDS: GABAPENTIN 100 MG CAP PO SCH ×2 (09:29→21:54)
[2019-01-29] MEDS: PANTOPRAZOLE 40 MG TAB PO SCH (09:29)
[2019-01-29] MEDS: MULTIPLE VITAMINS W/ MINERALS TAB PO SCH ×2 (09:29→21:55)
[2019-01-29] MEDS: ASPirin-EC 81 mg tab PO SCH (09:30)
[2019-01-29] MEDS: Pro-Stat SF 30ml Vanilla PO SCH ×2 (09:31→22:07)
[2019-01-29] MEDS: CARVEDILOL 3.125 MG TAB PO SCH ×2 (09:36→21:56)
[2019-01-29] MEDS: ACETAMINOPHEN 325 MG TAB PO PRN (10:00)
[2019-01-29 10:46] LABS: BUN/Creatinine Ratio 18.6; Calcium 8.2 mg/dL (8.5-10.1); Potassium 3.9 mmol/L (3.5-5.1)
--- NOTE | 2019-01-29 12:38 | NUR ---
Nutrition Follow-up Notes Wt.: 62.9 kg Pt's in isolation room, on oxygen via nasal cannula, sleeping no immediate family member at bedside when rounded this morning. Pt's no signs of distress noted earlier, currently on Pureed Consistent Carb diet with Glucerna Shakes 1 carton QID, and Prostat 1 pkt BID, with inadeuqte PO of 50% x 2 days per RN doc Est. Needs based on BW (67 kg): 2616-7393 kcal (23-25 kcal/kgBW), 67-87 gms pro (1.0-1.3 gms/kgBW r/t wounds severe hypoalb). Will continue to monitor pertinent labs and reassess nutrient needs prn Labs: BUN 36 H, CREAT 1.58 H, GLU 148 H, CA 7.8 L, ALB 1.6 L. Skin: Cabrera scale 12, high risk, pt's posterior sacrum, right lateral calf and back pressure ulcers per head of partner development. Pls refer to power electronics research engineer's notes for further details. Noted pt's on MVI and Asc acid supplements. GI: Pt had 5 BM today per head of partner development. PES: Altered nutrition related lab values r/t current/chronic medical condition aeb elev A1C, BUN severe hypoalb, hypocalcemia, hyperglyccemia Will continue to monitor PO intake, skin status, pertinent labs and weight trend. F/u in 3 to 5 days. Rec.: 1.) Continue close supervision and feeding assistance prn during meals. 2.) Refer pt to CDE/RD for further nutrition education and weight monitoring upon discharge. 3.) Continue current plan of care.
[2019-01-29 13:00] VITALS: BP 91/40
--- NOTE | 2019-01-29 15:11 | NUR ---
Patient repositioned repositioned patient to left side. Pt tolerated well, daughter at beside. Will cont to monitor
[2019-01-29 17:00] VITALS: BP 88/52
[2019-01-29 17:13] LABS: Hemoglobin 8.6 g/dL (12.2-16.2); Lymphocytes # (auto) 1.9 uL; Monocytes # (auto) 0.8 uL
[2019-01-29 17:16] LABS: Basophils # (auto) 0.1 uL; Basophils % (auto) 1.3 % (0.0-2.0); Eosinophils # (auto) 0.1 uL; Eosinophils % (auto) 2.3 % (0.0-7.0); Hematocrit 27.8 % (36.0-46.0); Lymphocytes % (auto) 29.7 % (10.0-50.0); Mean Corpuscular Hemoglobin 26.2 pg (28.0-32.0); Mean Corpuscular Volume 84.6 fL (80.0-100.0); Monocytes % (auto) 12.5 % (0.0-12.0); Neutrophils # (auto) 3.4 uL; Neutrophils % (auto) 54.2 % (37.0-80.0); Nucleated Red Blood Cells % 0.1 %; Platelet Count (auto) 369 10^3/uL (140-450); Red Blood Cells 3.29 10^6/uL (4.0-5.20); White Blood Cell 6.3 10^3/uL (4.4-10.8)
[2019-01-29 17:28] LABS: Red Cell Distribution Width 20.7 % (11.8-14.3)
--- NOTE | 2019-01-29 19:00 | NUR ---
OPENING NOTE ASSUMED CARE OF PATIENT. PATIENT SHOWS NO S/S OF DISTRESS, SOB, OR PAIN. BED IS AT LOWEST LEVEL, SIDE RAILS UP X2. WILL REPOSITION PATIENT Q2 HOURS, WILL CONTINUE TO MONITOR. FAMILY IS AT BEDSIDE.
[2019-01-29 20:00] VITALS: BP 112/62
[2019-01-29 22:00] VITALS: BP 112/62
--- NOTE | 2019-01-30 00:30 | NUR ---
Dressings on sacrum and right lower leg changed per order. Pictures of all wounds were taken. patient repositioned to the right side.
[2019-01-30 05:00] VITALS: BP 108/68
[2019-01-30] MEDS: FUROSEMIDE 20 MG TAB PO SCH (06:00)
[2019-01-30] MEDS: Glucerna Carbsteady SHAKE Vanilla 8oz PO SCH ×2 (06:00→12:32)
[2019-01-30] MEDS: ACCU-CHEK COMFORT CURVE STRIP VI SCH ×3 (07:00→17:00)
[2019-01-30] MEDS: InsuLIN REG 1unit/0.01ml Soln (100units/ml) SC SCH ×3 (07:00→17:00)
--- NOTE | 2019-01-30 07:47 | NUR ---
Closing note Endorsed care to day shift RN. patient shows no s/s of distress.
[2019-01-30 08:00] VITALS: BP 95/53
[2019-01-30] MEDS: COLISTIMETHATE SODIUM IV SCH (08:00)
[2019-01-30] MEDS: STERILE WATER IV SCH (08:00)
[2019-01-30] MEDS: CARVEDILOL 3.125 MG TAB PO SCH (10:00)
--- NOTE | 2019-01-30 10:04 | NUR ---
I faxed home health order to [facility].
[2019-01-30 10:22] VITALS: BP 108/60
--- NOTE | 2019-01-30 10:32 | NUR ---
Spoke to family This RN spoke to pt's daughter Migdalia and notified of d/c order and f/u care. Per Migdalia, needs transport arranged for pt to be transported back home. I spoke to social service manager Marylu and she will arrange transport ack home.
[2019-01-30] MEDS: MULTIPLE VITAMINS W/ MINERALS TAB PO SCH (10:41)
[2019-01-30] MEDS: PANTOPRAZOLE 40 MG TAB PO SCH (10:41)
[2019-01-30] MEDS: ASCORBIC ACID 500 MG TAB PO SCH (10:41)
[2019-01-30] MEDS: GABAPENTIN 100 MG CAP PO SCH (10:41)
[2019-01-30] MEDS: Pro-Stat SF 30ml Vanilla PO SCH (10:42)
[2019-01-30] MEDS: ASPirin-EC 81 mg tab PO SCH (10:42)
--- NOTE | 2019-01-30 11:30 | NUR ---
WOUND CARE NOTE: Weekly reevaluation by wound care team. 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 Discussed with bedside RN, Elen. NOC RNs changed dressings and took photos. Plan for patient to be discharged today with home health.
--- NOTE | 2019-01-30 11:53 | NUR ---
I spoke with Romana at [facility], she said they are able to accept this patient back on service-to start within 48 hours, I faxed her the requested wound care order.
--- NOTE | 2019-01-30 12:23 | NUR ---
Discharge instructions given as ordered to patient and pt's daughter Migdalia at bedside. Encourage to follow up with PMD as instructed. All questions and concerns addressed. Patient's daughter verbalized understanding. Medication reconciliation form completed and copy given to patient's daughter. Knutson catheter removed. Pt awaiting apple picking supervisor to be arranged from insurance. No distress noted at this time
[2019-01-30 13:00] VITALS: BP 85/46
--- NOTE | 2019-01-30 14:42 | NUR ---
SPOKE TO IE PER AIDA WITH [facility], PT IS ARRANGED WITH [facility] FOR DIRECTOR OF DIGITAL PLATFORMS ETA IS 1530 PHONE IS [phone]. PATIENT AND DAUGHTER MADDY INFORMED AND VERBALIZED UNDERSTANDING. PER MADDY SHE WILL BE HOME WAITING FOR PATIENT
--- NOTE | 2019-01-30 15:30 | NUR ---
Spicer catheter dc'd Order to discontinue spicer catheter. Spicer dc'd with clean technique following deflation of balloon. Patient tolerated well with no complaints of pain. Continue care. Awaiting diamond picker at this time
--- NOTE | 2019-01-30 16:14 | NUR ---
Patient taken to vehicle via gurney with all personal belongings, accompanied by ambulance personnel from [employer] [facility]. No distress noted at time of departure.
== END 2019-01-30 16:15 | disposition home or self-care (01) | DRG 871 ==
LOC: EDBD 19:24 → ER 19:34 → TELE 01-15 05:57 → TELE-CENTR 01-16 13:09 → CENTRAL 01-26 19:00
PROVIDERS: ADMIT Nurse Practitioner Family; ATTEND Internal Medicine Cardiovascular Disease
PROC: 30233N1 Transfusion of Nonautologous Red Blood Cells into Peripheral Vein, Percutaneous Approach (ICD-10-PCS; principal; 2019-01-18)
DX: A41.9 Sepsis, unspecified organism (principal); L89.94 Pressure ulcer of unspecified site, stage 4; E43 Unspecified severe protein-calorie malnutrition; G92 Toxic encephalopathy; I50.43 Acute on chronic combined systolic (congestive) and diastolic (congestive) heart failure; N39.0 Urinary tract infection, site not specified; D68.69 Other thrombophilia; L03.90 Cellulitis, unspecified; E11.52 Type 2 diabetes mellitus with diabetic peripheral angiopathy with gangrene; I48.92 Unspecified atrial flutter; K92.2 Gastrointestinal hemorrhage, unspecified; E78.5 Hyperlipidemia, unspecified; I11.0 Hypertensive heart disease with heart failure; I48.91 Unspecified atrial fibrillation; I25.10 Atherosclerotic heart disease of native coronary artery without angina pectoris; F03.90 Unspecified dementia, unspecified severity, without behavioral disturbance, psychotic disturbance, mood disturbance, and anxiety; D63.8 Anemia in other chronic diseases classified elsewhere; L89.159 Pressure ulcer of sacral region, unspecified stage; F09 Unspecified mental disorder due to known physiological condition; R62.7 Adult failure to thrive; I48.2 Chronic atrial fibrillation; J20.8 Acute bronchitis due to other specified organisms; K31.84 Gastroparesis; E11.43 Type 2 diabetes mellitus with diabetic autonomic (poly)neuropathy; H54.8 Legal blindness, as defined in USA; I70.202 Unspecified atherosclerosis of native arteries of extremities, left leg; Z91.19 Patient's noncompliance with other medical treatment and regimen; Z79.899 Other long term (current) drug therapy; Z68.24 Body mass index [BMI] 24.0-24.9, adult
CPT/HCPCS: 36415; 71045; 80048; 80053; 80202; 81001; 82962; 83036; 83605; 83880; 84484; 85014; 85018; 85025; 85379; 85610; 85730; 86850; 86900; 86901; 86920; 87040; 87076; 87077; 87081; 87086; 87205; 92610; 93005; 93926; 93970; 94640; 96361; 96365; 96367; 96372; A6257; C9113; G0378; J0696; J0885; J1815; J7060; P9047

== ENCOUNTER → 2019-03-05 | Outpatient (CLI) | payer MEDICARE, MEDICAID ==
[2019-03-05 16:07] LABS: Eosinophils # (auto) 0.1 uL; Hematocrit 36.5 % (36.0-46.0); Hemoglobin 11.1 g/dL (12.2-16.2); Lymphocytes # (auto) 1.9 uL; White Blood Cell 11.7 10^3/uL (4.4-10.8)
[2019-03-05 16:10] LABS: Basophils # (auto) 0.1 uL; Basophils % (auto) 0.5 % (0.0-2.0); Eosinophils % (auto) 0.8 % (0.0-7.0); Lymphocytes % (auto) 16.3 % (10.0-50.0); Mean Corpuscular Hgb Conc. 30.5 g/dL (32.0-36.0); Mean Corpuscular Volume 85.5 fL (80.0-100.0); Monocytes # (auto) 0.8 uL; Monocytes % (auto) 7.1 % (0.0-12.0); Neutrophils # (auto) 8.8 uL; Neutrophils % (auto) 75.3 % (37.0-80.0); Nucleated Red Blood Cells % 0.2 %; Platelet Count (auto) 446 10^3/uL (140-450); Red Blood Cells 4.26 10^6/uL (4.0-5.20)
[2019-03-05 16:29] LABS: Red Cell Distribution Width 21.1 % (11.8-14.3)
[2019-03-05 16:30] LABS: Albumin 2.5 g/dL (3.4-5.0); BUN/Creatinine Ratio 46.7; Bilirubin, Direct 0.1 mg/dL (0-0.2); Bilirubin, Total 0.3 mg/dL (0.2-1.0); Calcium 8.7 mg/dL (8.5-10.1); Total Protein 8.3 g/dL (6.4-8.2)
== END | disposition home or self-care (01) ==
LOC: LAB 11:38
PROVIDERS: ATTEND Internal Medicine Cardiovascular Disease
DX: K74.1 Hepatic sclerosis (principal); E03.9 Hypothyroidism, unspecified; E55.9 Vitamin D deficiency, unspecified; E11.65 Type 2 diabetes mellitus with hyperglycemia
CPT/HCPCS: 36415; 80048; 80061; 80076; 82306; 83036; 84443; 85025